=== PATIENT | female | born 1970 | race Caucasian/White ===

== ENCOUNTER → 2016-08-28 | Outpatient (CLI) | payer BC ==
--- NOTE | 2016-08-29 08:18 | MM ---
Reason for exam: screening (asymptomatic). Last mammogram was performed 1 year and 6 months ago. History: Patient is postmenopausal, has history of endometrial cancer at age 41, and had first child at age 36. Family history of breast cancer in aunt. Physical Findings: A clinical breast exam by your physician is recommended on an annual basis and results should be correlated with mammographic findings. MG Screening Mammo w CAD Bilateral CC and MLO view(s) were taken. Prior study comparison: March 03, 2015, bilateral MG screening mammo w CAD. October 29, 2013, bilateral digital screening mammo w/CAD. The breast tissue is heterogeneously dense. This may lower the sensitivity of mammography. Finding: There are typically benign round calcifications in both breasts. There is no discrete abnormality. ASSESSMENT: Benign, BI-RAD 2 RECOMMENDATION: Routine screening mammogram of both breasts in 1 year.
== END | disposition home or self-care (01) ==
LOC: RADMAMWWP 09:24
PROVIDERS: ATTEND Obstetrics & Gynecology
DX: Z12.31 Encounter for screening mammogram for malignant neoplasm of breast (principal)

== ENCOUNTER → 2017-11-28 | Outpatient (CLI) | payer BC ==
--- NOTE | 2017-11-28 12:04 | MM ---
Reason for exam: screening (asymptomatic). Last mammogram was performed 1 year and 3 months ago. History: Patient is postmenopausal, has history of endometrial cancer at age 41, and had first child at age 36. Family history of breast cancer in aunt. Physical Findings: A clinical breast exam by your physician is recommended on an annual basis and results should be correlated with mammographic findings. MG Screening Mammo w CAD Bilateral CC and MLO view(s) were taken. Prior study comparison: August 28, 2016, bilateral MG screening mammo w CAD. March 03, 2015, bilateral MG screening mammo w CAD. The breast tissue is heterogeneously dense. This may lower the sensitivity of mammography. There are typically benign round calcifications in both breasts. Focal asymmetry left anterior middle depth on MLO view, 5cm from nipple. ASSESSMENT: Incomplete: need additional imaging evaluation, BI-RAD 0 RECOMMENDATION: Special view mammogram of the left breast. If lesion persists on supplemental views, image directed ultrasound is recommended. [facility] will attempt to contact patient to return for supplemental views and ultrasound if indicated.
== END | disposition home or self-care (01) ==
LOC: RADMAMWWP 07:27
PROVIDERS: ATTEND Obstetrics & Gynecology
DX: Z12.31 Encounter for screening mammogram for malignant neoplasm of breast (principal)
CPT/HCPCS: 77067

== ENCOUNTER → 2017-12-17 | Outpatient (CLI) | payer BC ==
--- NOTE | 2017-12-17 08:36 | MM ---
Reason for exam: additional evaluation requested from abnormal screening. Last mammogram was performed 1 month ago. History: Patient is postmenopausal, has history of endometrial cancer at age 41, and had first child at age 36. Family history of breast cancer in aunt. Physical Findings: Nurse did not find any significant physical abnormalities on exam. MG 3D Work Up W/Cad LT Spot compression CC, spot compression MLO, and LM view(s) were taken of the left breast. Prior study comparison: November 28, 2017, bilateral MG screening mammo w CAD. August 28, 2016, bilateral MG screening mammo w CAD. The breast tissue is heterogeneously dense. This may lower the sensitivity of mammography. There are two masses in the left upper outer quadrant at anterior and middle depth that persist on additional views. These results were verbally communicated with the patient and result sheet given to the patient on 12/17/17. ASSESSMENT: Incomplete: need additional imaging evaluation, BI-RAD 0 RECOMMENDATION: Ultrasound of the left breast. upper outer quadrant
--- NOTE | 2017-12-17 08:38 | USB ---
Reason for exam: additional evaluation requested from abnormal screening. History: Patient is postmenopausal, has history of endometrial cancer at age 41, and had first child at age 36. Family history of breast cancer in aunt. US Breast Workup Limited LT Left limited breast ultrasound including focal area of concern, retroareolar and axilla demonstrates a 0.9 x 0.6 x 0.7cm oval, cystic lesion at 3 o'clock that corresponds to the mammographic abnormality. The second mass represents dense tissue. These results were verbally communicated with the patient and result sheet given to the patient on 12/17/17. ASSESSMENT: Benign, BI-RAD 2 RECOMMENDATION: Return to routine screening mammogram schedule for both breasts.
== END | disposition home or self-care (01) ==
LOC: RADMAMWWP 07:08
PROVIDERS: ATTEND Obstetrics & Gynecology
DX: R92.8 Other abnormal and inconclusive findings on diagnostic imaging of breast (principal)
CPT/HCPCS: 77061; 77065

== ENCOUNTER → 2019-02-14 | Outpatient (CLI) | payer BC ==
--- NOTE | 2019-02-17 10:31 | MM ---
Reason for exam: screening (asymptomatic). Last mammogram was performed 1 year and 2 months ago. History: Patient is postmenopausal, has history of endometrial cancer at age 41, and had first child at age 36. Family history of breast cancer in aunt. Physical Findings: A clinical breast exam by your physician is recommended on an annual basis and results should be correlated with mammographic findings. MG 3D Screening Mammo W/Cad Bilateral CC and MLO view(s) were taken. Prior study comparison: December 17, 2017, left breast MG 3d work up w/cad LT. November 28, 2017, bilateral MG screening mammo w CAD. The breast tissue is heterogeneously dense. This may lower the sensitivity of mammography. There are benign appearing round calcifications bilaterally. There is no discrete abnormality. ASSESSMENT: Benign, BI-RAD 2 RECOMMENDATION: Routine screening mammogram of both breasts in 1 year.
== END | disposition home or self-care (01) ==
LOC: RADMAMWWP 11:18
PROVIDERS: ATTEND Obstetrics & Gynecology
DX: Z12.31 Encounter for screening mammogram for malignant neoplasm of breast (principal)
CPT/HCPCS: 77063; 77067

== ENCOUNTER 2019-03-21 12:04 | Emergency (ER) | payer BC ==
[2019-03-21] MEDS ORDERED: SODIUM CHLORIDE 0.9% 1,000 ML IV STA (12:50)
[2019-03-21] MEDS ORDERED: KETOROLAC 30 MG/ML 1 ML VIAL IVP STA (12:50)
[2019-03-21 13:25] LABS: ALT 54 U/L (9-52); AST 47 U/L (14-36); African American GFR (CKD) >90 (>60 ml/min/1.73 sqM); Albumin 4.4 g/dL (3.5-5.0); Alkaline Phosphatase 140 U/L (38-126); Amylase 54 U/L (30-110); Anion Gap 12 mmol/L; Blood Urea Nitrogen 9 mg/dL (7-17); Calcium 9.6 mg/dL (8.4-10.2); Carbon Dioxide 24 mmol/L (22-30); Chloride 104 mmol/L (98-107); Glucose 98 mg/dL (74-99); Potassium 4.5 mmol/L (3.5-5.1); Sodium 140 mmol/L (137-145); Total Bilirubin 0.7 mg/dL (0.2-1.3); Total Protein 8.6 g/dL (6.3-8.2)
[2019-03-21 13:39] LABS: Basophils # (A) 0.1 k/uL (0-0.2); Basophils % (A) 1 %; Eosinophils # (A) 0.2 k/uL (0-0.7); Eosinophils % (A) 2 %; HCT 42.6 % (34.0-46.0); HGB 14.5 gm/dL (11.4-16.0); Lymphocytes # (A) 1.6 k/uL (1.0-4.8); Lymphocytes % (A) 17 %; MCH 28.5 pg (25.0-35.0); Mean Platelet Volume 6.8; Monocytes # (A) 0.4 k/uL (0-1.0); Monocytes % (A) 4 %; Neutrophils # (A) 7.2 k/uL (1.3-7.7); Neutrophils % (A) 75 %; Platelet Count 298 k/uL (150-450); RBC 5.07 m/uL (3.80-5.40); RDW 13.2 % (11.5-15.5); WBC 9.5 k/uL (3.8-10.6)
--- NOTE | 2019-03-21 13:48 | ED ---
Abdominal Pain HPI - General Chief Complaint: Abdominal Pain Stated Complaint: abdominal pain Time Seen by Provider: 03/21/19 12:19 Source: patient Mode of arrival: ambulatory Limitations: no limitations - History of Present Illness Initial Comments: Patient is a 49-year-old female presenting to emergency Department with complaints of lower abdominal pain 3 days. Patient states the pain has mostly been right lower quadrant but occasional pains all left lower quadrant. Patient has had increase in urination for the past week as well. Patient states the pain is sharp in nature and increases with bending over and twisting. There is no alleviating factors. Patient has past medical history of partial hysterectomy secondary to cancer as well as cholecystectomy. No other abdominal surgeries. Patient had normal bowel movement today. Patient denies any fever, chills, chest pain, shortness of breath, vomiting, diarrhea. Patient states she has been told she has diverticuli. No history of diverticulitis. Upon arrival to ER, vital signs are stable, afebrile. - Related Data Home Medications Medication Instructions Recorded Confirmed Acetaminophen Tab [Tylenol Tab] 650 mg PO Q6H PRN 06/22/15 06/25/15 Calcium Carbonate [Tums] 500 mg PO TID PRN 06/22/15 06/25/15 Previous Rx's Medication Instructions Recorded Enoxaparin [Lovenox] 100 mg SQ DAILY #7 syr 06/25/15 Hydrocodone/Acetaminophen [Winn 1 - 2 each PO Q4HR PRN #20 tab 06/25/15 5-325] Ketorolac [Toradol] 10 mg PO Q8HR #15 tab 03/21/19 Allergies Allergy/AdvReac Type Severity Reaction Status Date / Time No Known Allergies Allergy Verified 03/21/19 12:15 Review of Systems ROS Statement: Those systems with pertinent positive or pertinent negative responses have been documented in the HPI. ROS Other: All systems not noted in ROS Statement are negative. Past Medical History Past Medical History: Cancer, Deep Vein Thrombosis (DVT), GERD/Reflux Additional Past Medical History / Comment(s): hx. endometrial cancer, DVT leg 2007 after childbirth, pseudo tumor behind left eye History of Any Multi-Drug Resistant Organisms: None Reported Past Surgical History: Hysterectomy Past Anesthesia/Blood Transfusion Reactions: No Reported Reaction Smoking Status: Never smoker - Past Family History Mother Family Medical History: Cancer General Exam - General Exam Comments Initial Comments: GENERAL: Well-appearing, well-nourished and in mild distress secondary to pain. HEAD: Atraumatic, normocephalic. EYES: Pupils equal round and reactive to light, extraocular movements intact, sclera anicteric, conjunctiva are normal. ENT: TMs normal, nares patent, oropharynx clear without exudates. Moist mucous membranes. NECK: Normal range of motion, supple without lymphadenopathy or JVD. LUNGS: Breath sounds clear to auscultation bilaterally and equal. No wheezes rales or rhonchi. HEART: Regular rate and rhythm without murmurs, rubs or gallops. ABDOMEN: Tender to palpation left lower quadrant, suprapubic area, right lower quadrant, mild guarding Soft,normoactive bowel sounds. no rebound. No masses appreciated. : Deferred EXTREMITIES: Normal range of motion, no pitting or edema. No clubbing or cyanosis. NEUROLOGICAL: Cranial nerves II through XII grossly intact. Normal speech, normal gait. PSYCH: Normal mood, normal affect. SKIN: Warm, Dry, normal turgor, no rashes or lesions noted. Limitations: no limitations Course Vital Signs 03/21/19 03/21/19 03/21/19 12:12 13:47 15:14 Temperature 97.9 F 98.2 F Pulse Rate 88 80 Respiratory 16 18 18 Rate Blood Pressure 129/72 125/74 O2 Sat by Pulse 100 98 Oximetry Medical Decision Making - Medical Decision Making Patient is a 49-year-old female presenting with lower abdominal pain that has been increasing over the last 3 days. Patient admits to nausea secondary to pain. Patient denies fever, chills, vomiting, diarrhea. Patient has prior history of partial hysterectomy secondary to endometrial cancer as well as cholecystectomy. On exam patient has lower abdominal generalized tenderness. Skin exam is normal. CBC is normal, CMP reveals slightly elevated liver enzymes. Lactic acid is 0.9. UA is normal. CT the abdomen revealed an enlarged portacaval and angel hepatic lymph nodes measuring up to 2.2 cm. Metastatic disease is not excluded at this time. Left-sided diverticulosis without evidence of acute diverticulitis. Findings were discussed with the patient. Patient states she is okay to follow up with her primary care regarding these results. She reports improvement with pain medications and fluid. Patient will be sent home with some pain medication. Strict return parameters were discussed with patient she verbalized understanding. Case discussed with Dr. Schneider. - Lab Data Result diagrams: 03/21/19 12:50 03/21/19 12:50 Lab Results 03/21/19 03/21/19 03/21/19 Range/Units 12:50 12:50 12:50 WBC 9.5 (3.8-10.6) k/uL RBC 5.07 (3.80-5.40) m/uL Hgb 14.5 (11.4-16.0) gm/dL Hct 42.6 (34.0-46.0) % MCV 84.0 (80.0-100.0) fL MCH 28.5 (25.0-35.0) pg MCHC 34.0 (31.0-37.0) g/dL RDW 13.2 (11.5-15.5) % Plt Count 298 (150-450) k/uL Neutrophils % 75 % Lymphocytes % 17 % Monocytes % 4 % Eosinophils % 2 % Basophils % 1 % Neutrophils # 7.2 (1.3-7.7) k/uL Lymphocytes # 1.6 (1.0-4.8) k/uL Monocytes # 0.4 (0-1.0) k/uL Eosinophils # 0.2 (0-0.7) k/uL Basophils # 0.1 (0-0.2) k/uL Sodium 140 (137-145) mmol/L Potassium 4.5 (3.5-5.1) mmol/L Chloride 104 (98-107) mmol/L Carbon Dioxide 24 (22-30) mmol/L Anion Gap 12 mmol/L BUN 9 (7-17) mg/dL Creatinine 0.59 (0.52-1.04) mg/dL Est GFR (CKD-EPI)AfAm >90 (>60 ml/min/1.73 sqM) Est GFR (CKD-EPI)NonAf >90 (>60 ml/min/1.73 sqM) Glucose 98 (74-99) mg/dL Plasma Lactic Acid Victor Manuel 0.9 (0.7-2.0) mmol/L Calcium 9.6 (8.4-10.2) mg/dL Total Bilirubin 0.7 (0.2-1.3) mg/dL AST 47 H (14-36) U/L ALT 54 H (9-52) U/L Alkaline Phosphatase 140 H (38-126) U/L Total Protein 8.6 H (6.3-8.2) g/dL Albumin 4.4 (3.5-5.0) g/dL Amylase 54 (30-110) U/L Lipase 52 (23-300) U/L Urine Color Urine Appearance (Clear) Urine pH (5.0-8.0) Ur Specific [place] (1.001-1.035) Urine Protein (Negative) Urine Glucose (UA) (Negative) Urine Ketones (Negative) Urine Blood (Negative) Urine Nitrite (Negative) Urine Bilirubin (Negative) Urine Urobilinogen (<2.0) mg/dL Ur Leukocyte Esterase (Negative) 03/21/19 Range/Units 14:40 WBC (3.8-10.6) k/uL RBC (3.80-5.40) m/uL Hgb (11.4-16.0) gm/dL Hct (34.0-46.0) % MCV (80.0-100.0) fL MCH (25.0-35.0) pg MCHC (31.0-37.0) g/dL RDW (11.5-15.5) % Plt Count (150-450) k/uL Neutrophils % % Lymphocytes % % Monocytes % % Eosinophils % % Basophils % % Neutrophils # (1.3-7.7) k/uL Lymphocytes # (1.0-4.8) k/uL Monocytes # (0-1.0) k/uL Eosinophils # (0-0.7) k/uL Basophils # (0-0.2) k/uL Sodium (137-145) mmol/L Potassium (3.5-5.1) mmol/L Chloride (98-107) mmol/L Carbon Dioxide (22-30) mmol/L Anion Gap mmol/L BUN (7-17) mg/dL Creatinine (0.52-1.04) mg/dL Est GFR (CKD-EPI)AfAm (>60 ml/min/1.73 sqM) Est GFR (CKD-EPI)NonAf (>60 ml/min/1.73 sqM) Glucose (74-99) mg/dL Plasma Lactic Acid Victor Manuel (0.7-2.0) mmol/L Calcium (8.4-10.2) mg/dL Total Bilirubin (0.2-1.3) mg/dL AST (14-36) U/L ALT (9-52) U/L Alkaline Phosphatase (38-126) U/L Total Protein (6.3-8.2) g/dL Albumin (3.5-5.0) g/dL Amylase (30-110) U/L Lipase (23-300) U/L Urine Color Light Yellow Urine Appearance Clear (Clear) Urine pH 6.0 (5.0-8.0) Ur Specific [place] 1.038 H (1.001-1.035) Urine Protein Negative (Negative) Urine Glucose (UA) Negative (Negative) Urine Ketones Negative (Negative) Urine Blood Negative (Negative) Urine Nitrite Negative (Negative) Urine Bilirubin Negative (Negative) Urine Urobilinogen <2.0 (<2.0) mg/dL Ur Leukocyte Esterase Negative (Negative) Disposition Clinical Impression: Abdominal pain Disposition: HOME SELF-CARE Condition: Stable Instructions (If sedation given, give patient instructions): Abdominal Pain (ED) Additional Instructions: Please return to the Emergency Department if symptoms worsen or any other c oncerns. Follow-up with Dr. Lopez as discussed. Prescriptions: Ketorolac [Toradol] 10 mg PO Q8HR #15 tab Is patient prescribed a controlled substance at d/c from ED?: No Referrals: Talib Lopez MD [Primary Care Provider] - 1-2 days
--- NOTE | 2019-03-21 13:57 | CT ---
EXAMINATION TYPE: CT abdomen pelvis w con DATE OF EXAM: 03/21/2019 COMPARISON: NONE HISTORY: 49 year-old female with abdominal pain. History of endometrial cancer. TECHNIQUE: Contiguous axial scanning of the abdomen and pelvis following administration of 100 ml Iso noah 300 IV contrast. Delayed images through the kidneys and coronal/sagittal reconstructions perform ed. CT DLP: 2281.4 mGycm Automated exposure control for dose reduction was used. FINDINGS: Heart normal size without pericardial effusion. Lung bases clear without pleural effusion. Tiny hiatal hernia. Liver enlarged measuring 19.8 cm. Well-defined 1.1 cm hypodense lesion left liver lobe, likely cysts. A second subcentimeter hypodense lesion more inferiorly in the left liver lobe is too small for accu rate CT characterization and may also represent a cyst. Portal venous system is patent. No biliary ductal dilatation. Cholecystectomy clips. Enlarged portacaval lymph node measuring 2.0 cm. Anna hepatic lymph node measures 2.2 cm. Scattered nonenlarged retroperitoneal lymph nodes are demonstrated. Adrenal glands, kidneys, spleen, and pancreas show no gross abnormal body. No dilated small bowel, free fluid, or free air. Appendix not discretely identified. No secondary findings of acute appendicitis in the right lower qu adrant. Mild to moderate stool burden. Left-sided colonic diverticulosis, greatest in the proximal sigmoid. N o pericolonic inflammatory change. Bladder partially distended. Uterus surgically absent. Both ovaries are visualized. There is a 2.6 cm cystic structure within the right ovary. Pelvic phleboliths. No abnormal fluid collection in the pel vis or pelvic lymphadenopathy seen. Bones: No osseous destructive process. IMPRESSION: 1. STATUS POST HYSTERECTOMY. 2. ENLARGED PORTACAVAL AND PORTAHEPATIC LYMPH NODES MEASURING UP TO 2.2 CM. GIVEN THE PATIENT'S HISTO RY OF ENDOMETRIAL CARCINOMA , METASTATIC DISEASE IS NOT EXCLUDED AT THIS TIME. RECOMMEND COMPARISON T O THE PATIENT'S OUTSIDE PRIORS. 3. A 2.6 CM CYSTIC STRUCTURE WITHIN THE RIGHT OVARY. CORRELATE WITH PATIENT'S MENOPAUSAL STATUS. THI S WOULD BE ABNORMAL IN A POSTMENOPAUSAL FEMALE. NONEMERGENT FOLLOW-UP PELVIC ULTRASOUND TO FURTHER EV ALUATE. 4. LEFT-SIDED COLONIC DIVERTICULOSIS GREATEST IN THE PROXIMAL TO MID SIGMOID. NO EVIDENCE FOR ACUTE D IVERTICULITIS.
[2019-03-21 13:58] VITALS: RESP 18
[2019-03-21 14:50] LABS: Appearance,Urine Clear (Clear); Bilirubin,Urine Negative (Negative); Blood,Urine Negative (Negative); Color,Urine Light Yellow; Glucose,Urine (UA) Negative (Negative); Ketones,Urine Negative (Negative); Leukocyte Esterase,Urine Negative (Negative); Nitrite,Urine Negative (Negative); Protein,Urine Negative (Negative); Specific Gravity,Urine 1.038 (1.001-1.035); Urobilinogen,Urine <2.0 mg/dL (<2.0)
[2019-03-21 15:15] VITALS: BP 125/74; PULSE 80; TEMP 98.2
== END 2019-03-21 15:15 | disposition home or self-care (01) ==
LOC: EC 12:04
DX: R10.31 Right lower quadrant pain (principal); R10.32 Left lower quadrant pain; K57.30 Diverticulosis of large intestine without perforation or abscess without bleeding; Z85.42 Personal history of malignant neoplasm of other parts of uterus; Z86.718 Personal history of other venous thrombosis and embolism; Z90.49 Acquired absence of other specified parts of digestive tract; Z90.710 Acquired absence of both cervix and uterus
CPT/HCPCS: 36415; 80053; 82150; 83605; 83690; 85025; 81003; 74177; 99284; 96374; 96361 ×2; J1885; Q9967

== ENCOUNTER → 2020-03-29 | Outpatient (CLI) | payer BC ==
--- NOTE | 2020-03-30 14:08 | MM ---
Reason for exam: screening (asymptomatic). Last mammogram was performed 1 year and 1 month ago. History: Patient is postmenopausal, has history of endometrial cancer at age 41, and had first child at age 36. Family history of breast cancer in aunt. Physical Findings: A clinical breast exam by your physician is recommended on an annual basis and results should be correlated with mammographic findings. MG 3D Screening Mammo W/Cad Bilateral CC and MLO view(s) were taken. Prior study comparison: February 14, 2019, bilateral MG 3d screening mammo w/cad. December 17, 2017, left breast MG 3d work up w/cad LT. There are scattered fibroglandular densities. Benign appearing bilateral calcifications. No significant changes when compared with prior studies. ASSESSMENT: Benign, BI-RAD 2 RECOMMENDATION: Routine screening mammogram of both breasts in 1 year.
== END | disposition home or self-care (01) ==
LOC: RADMAMWWP 09:20
PROVIDERS: ATTEND Obstetrics & Gynecology
DX: Z12.31 Encounter for screening mammogram for malignant neoplasm of breast (principal); Z80.3 Family history of malignant neoplasm of breast
CPT/HCPCS: 77063; 77067

== ENCOUNTER → 2021-04-18 | Outpatient (CLI) | payer BC ==
--- NOTE | 2021-04-18 13:45 | MM ---
Reason for exam: screening (asymptomatic). Last mammogram was performed 1 year and 1 month ago. History: Patient is postmenopausal, has history of endometrial cancer at age 41, and had first child at age 36. Family history of breast cancer in aunt. Physical Findings: A clinical breast exam by your physician is recommended on an annual basis and results should be correlated with mammographic findings. MG 3D Screening Mammo W/Cad Bilateral CC and MLO view(s) were taken. Prior study comparison: March 29, 2020, bilateral MG 3d screening mammo w/cad. February 14, 2019, bilateral MG 3d screening mammo w/cad. December 17, 2017, left breast US breast workup limited LT. The breast tissue is heterogeneously dense. This may lower the sensitivity of mammography. There are benign appearing round calcifications bilaterally. There is no discrete abnormality. ASSESSMENT: Benign, BI-RAD 2 RECOMMENDATION: Routine screening mammogram of both breasts in 1 year.
--- NOTE | 2021-04-18 18:39 | BD ---
EXAMINATION TYPE: Axial Bone Density DATE OF EXAM: 04/18/2021 COMPARISON: NONE CLINICAL HISTORY: 51 YR OLD FEMALE.....ICD-10 CODE: Z78.0, N95.1 Height: 65 Weight: 254 FRAX RISK QUESTIONS: History of Fracture in Adulthood: YES Secondary Osteoporosis: YES 3. Menopause before 45: YES 5. Chronic liver disease: FATTY LIVER RISK FACTORS HISTORY OF: LT ANKLE FX AN ADULT History of Wrist Fracture: LT WRIST A CHILD Postmenopausal woman: YES, AT AGE 51, CANCER STOPPED CYCLES, ENDOMETRIAL CA AT AGE 42 Hyperparathyroidism: NO Adrenal Insufficiency: NO MEDICATIONS: Additional Medications: ALLERGY PILL, VIT D, AND VITAMINS, REFLUX MEDS, AND TUMS, Additional History: HX OF ENDOMETRIAL CA, ALLERGIES, REFLUX EXAM MEASUREMENTS: Bone mineral densitometry was performed using the [employer] System. Bone mineral density as measured about the Lumbar spine is: ----- L1-L4(G/cm2): 1.189 T Score Values are as follows: ----- L1: -0.7 ----- L2: 0.2 ----- L3: 0.4 ----- L4: 0.1 ----- L1-L4: 0.1 Bone mineral density ....FIRST DEXA STUDY, BASELINE Bone mineral density about the R hip (g/cm2): 1.207 Bone mineral density about the L hip (g/cm2): 1.203 T Score values are as follows: -----R Neck: 0.3 -----L Neck: 0.7 -----R Total: 1.6 -----L Total: 1.6 Bone mineral density .....FIRST DEXA SCAN, BASELINE STUDY FRAX%s: THERE IS A 6.5% CHANCE FOR A MAJOR OSTEOPOROTIC FX AND A 0.1% FOR HIP.......PROBABILITY F OR FX IN 10 YRS TIME IMPRESSION: Normal (Values between +1 and -1 indicate normal bone mass). Consider repeating this study in 5 year s or sooner if there is some new clinical indication. NOTE: T-SCORE=SD OF THE YOUNG ADULT MEAN.
== END | disposition home or self-care (01) ==
LOC: RADBDWWP 07:39
PROVIDERS: ATTEND Obstetrics & Gynecology
DX: Z12.31 Encounter for screening mammogram for malignant neoplasm of breast (principal); Z78.0 Asymptomatic menopausal state; Z85.42 Personal history of malignant neoplasm of other parts of uterus
CPT/HCPCS: 77063; 77067; 77080

== ENCOUNTER → 2021-11-23 | Outpatient (CLI) | payer BC ==
--- NOTE | 2021-11-23 10:28 | XR ---
EXAMINATION TYPE: XR Hip Bilateral Complete DATE OF EXAM: 11/23/2021 COMPARISON: NONE HISTORY: Pain TECHNIQUE: 2 view of the chest submitted FINDINGS: Osseous structures intact. Joint spaces preserved. Calcifications in the pelvis are likely vascular. IMPRESSION: No acute osseous abnormality. If symptoms persist consider MRI.
--- NOTE | 2021-11-23 10:29 | XR ---
EXAMINATION TYPE: XR knee limited LT DATE OF EXAM: 11/23/2021 COMPARISON: NONE HISTORY: Pain TECHNIQUE: 2 views submitted FINDINGS: Moderate to severe narrowing of the medial compartment of the knee joint. There is hypertro phic spurring. No acute fracture or dislocation. IMPRESSION: Osteoarthritis
--- NOTE | 2021-11-23 10:30 | XR ---
EXAM TYPE: LUMBAR SPINE X RAY SERIES COMPARISON: NONE HISTORY: Pain TECHNIQUE: 3 views are submitted. FINDINGS: Alignment is anatomic. The pedicles are intact. The transverse processes are intact. There is no s pondylolisthesis. Marked facet arthropathy L5-S1 with moderate changes L4-L5. IMPRESSION: 1. Moderate to severe facet arthropathy L4-5 and L5-S1. Suspect foraminal encroachment L5-S1. Correla te with MRI as clinically warranted.
== END | disposition home or self-care (01) ==
LOC: RADXRMAIN 08:51
PROVIDERS: ATTEND Internal Medicine Geriatric Medicine
DX: M17.12 Unilateral primary osteoarthritis, left knee (principal); M47.817 Spondylosis without myelopathy or radiculopathy, lumbosacral region; M25.552 Pain in left hip; M25.551 Pain in right hip
CPT/HCPCS: 72100; 73521

== ENCOUNTER → 2022-08-01 | Outpatient (CLI) | payer BC ==
--- NOTE | 2022-08-02 10:29 | MM ---
Reason for Exam: Screening (asymptomatic). Last mammogram was performed 1 year(s) and 3 month(s) ago. Patient History: Menarche at age 10. First Full-Term at age 36. Late child-bearing (after 30). Hysterectomy at age 41. Postmenopausal. Patient has history of breast feeding. Endometrial cancer, age 41. Maternal aunt had breast cancer. Risk Values: Evelyn 5 year model risk: 1.7%. NCI Lifetime model risk: 12.6%. Prior Study Comparison: 02/14/2019 Bilateral Screening Mammogram, [facility]. 03/29/2020 Bilateral Screening Mammogram, [facility]. 04/18/2021 Bilateral Screening Mammogram, [facility]. Tissue Density: The breast tissue is heterogeneously dense. This may lower the sensitivity of mammography. Findings: Analyzed By CAD. There is no suspicious group of microcalcifications or new suspicious mass in either breast. Scattered benign calcifications. Overall Assessment: Negative, BI-RAD 1 Management: Screening Mammogram of both breasts in 1 year. A clinical breast exam by your physician is recommended on an annual basis and results should be correlated with mammographic findings. [facility] will attempt to contact patient to return for supplemental views and ultrasound if indicated. Electronically signed and approved by: Car Drake DO
== END | disposition home or self-care (01) ==
LOC: RADMAMWWP 07:31
PROVIDERS: ATTEND Obstetrics & Gynecology
DX: Z12.31 Encounter for screening mammogram for malignant neoplasm of breast (principal); Z78.0 Asymptomatic menopausal state; Z80.3 Family history of malignant neoplasm of breast
CPT/HCPCS: 77063; 77067

== ENCOUNTER → 2023-08-06 | Outpatient (CLI) | payer BC ==
--- NOTE | 2023-08-07 09:09 | MM ---
Reason for Exam: Screening (asymptomatic). Last screening mammogram was performed 12 month(s) ago. Patient History: Menarche at age 10. First Full-Term at age 36. Late child-bearing (after 30). Hysterectomy at age 41. Postmenopausal. Patient has history of breast feeding. Endometrial cancer, age 41. Maternal aunt had breast cancer. Risk Values: Evelyn 5 year model risk: 1.7%. NCI Lifetime model risk: 12.4%. Prior Study Comparison: 03/29/2020 Bilateral Screening Mammogram, [facility]. 04/18/2021 Bilateral Screening Mammogram, [facility]. 08/01/2022 Bilateral MG 3D screening mammo w/cad, [facility]. Tissue Density: The breast tissue is heterogeneously dense. This may lower the sensitivity of mammography. Findings: Analyzed By CAD. Diffuse bilateral punctate calcifications are unchanged. There is no suspicious group of microcalcifications or new suspicious mass in either breast. Overall Assessment: Benign, BI-RAD 2 Management: Screening Mammogram of both breasts in 1 year. . Patient should continue monthly self-breast exams. A clinical breast exam by your physician is recommended on an annual basis. This exam should not preclude additional follow-up of suspicious palpable abnormalities. Note on Evelyn scores and lifetime risk: 1. A Evelyn score greater than 3% is considered moderate risk. If this is the case, consider specialist referral to assess eligibility for a risk reducing agent. 2. If overall lifetime risk for the development of breast cancer is 20% or higher, the patient may qualify for future screening with alternating mammogram and breast MRI. Electronically signed and approved by: Bay Lane M.D. Radiologist
== END | disposition home or self-care (01) ==
LOC: RADMAMWWP 07:32
PROVIDERS: ATTEND Obstetrics & Gynecology
DX: Z12.31 Encounter for screening mammogram for malignant neoplasm of breast (principal); Z80.3 Family history of malignant neoplasm of breast; Z78.0 Asymptomatic menopausal state
CPT/HCPCS: 77063; 77067

== ENCOUNTER 2024-12-24 08:43 | Emergency (ER) | payer BC ==
--- NOTE | 2024-12-24 09:29 | ED ---
Abdominal Pain HPI - General Chief Complaint: Abdominal Pain Stated Complaint: L leg pain Time Seen by Provider: 12/24/24 08:59 Source: patient, RN notes reviewed Limitations: no limitations - History of Present Illness Initial Comments: 54-year-old female presents emergency department chief complaint of left leg, leg swelling and pain. Patient states that she initially thought she just had a superficial clot which she has had in the past but she states she also had a DVT after childbirth. Patient states that she has no chest pain or shortness of breath but states that she had increasing leg pain and swelling which concerned her. She also complains of right-sided abdominal discomfort site flank pain. She states she has a history of kidney stones but feels different denies any significant nausea vomiting no urinary symptoms. - Related Data Home Medications Medication Instructions Recorded Confirmed Acetaminophen Tab [Tylenol Tab] 650 mg PO Q6H PRN 06/22/15 06/25/15 Calcium Carbonate [Tums] 500 mg PO TID PRN 06/22/15 06/25/15 Previous Rx's Medication Instructions Recorded Enoxaparin [Lovenox] 100 mg SQ DAILY #7 syr 06/25/15 Hydrocodone/Acetaminophen [[place] 1 - 2 each PO Q4HR PRN #20 tab 06/25/15 5-325] Ketorolac [Toradol] 10 mg PO Q8HR #15 tab 03/21/19 Allergies Allergy/AdvReac Type Severity Reaction Status Date / Time adhesive tape Allergy Rash/Hives Verified 12/24/24 09:12 Review of Systems ROS Statement: Those systems with pertinent positive or pertinent negative responses have been documented in the HPI. ROS Other: All systems not noted in ROS Statement are negative. Past Medical History Past Medical History: Cancer, Deep Vein Thrombosis (DVT), GERD/Reflux Additional Past Medical History / Comment(s): hx. endometrial cancer, DVT leg 2006 after childbirth, pseudo tumor behind left eye History of Any Multi-Drug Resistant Organisms: None Reported Past Surgical History: Cholecystectomy, Hysterectomy Past Anesthesia/Blood Transfusion Reactions: No Reported Reaction Past Alcohol Use History: Rare Past Drug Use History: None Reported - Past Family History Mother Family Medical History: Cancer General Exam Limitations: no limitations General appearance: alert, in no apparent distress Head exam: Present: atraumatic, normocephalic, normal inspection Eye exam: Present: normal appearance, PERRL, EOMI. Absent: scleral icterus, conjunctival injection, periorbital swelling Respiratory exam: Present: normal lung sounds bilaterally. Absent: respiratory distress, wheezes, rales, rhonchi, stridor Cardiovascular Exam: Present: regular rate, normal rhythm, normal heart sounds. Absent: systolic murmur, diastolic murmur, rubs, gallop, clicks GI/Abdominal exam: Present: soft, normal bowel sounds. Absent: distended, tenderness, guarding, rebound, rigid Extremities exam: Present: normal capillary refill, pedal edema, calf tenderness, other (Pulses equal bilaterally) Course Vital Signs 12/24/24 12/24/24 09:08 10:35 Temperature 98 F 98.3 F Pulse Rate 100 80 Respiratory 20 16 Rate Blood Pressure 189/115 O2 Sat by Pulse 98 99 Oximetry Medical Decision Making - Medical Decision Making Was pt. sent in by a medical professional or institution (, PA, TECHNOLOGY OFFICER, urgent care, hospital, or fdc...) When possible be specific @ -No Did you speak to anyone other than the patient for history (EMS, parent, family, police, friend...)? What history was obtained from this source @ -No Did you review nursing and triage notes (agree or disagree)? Why? @ -I reviewed and agree with nursing and triage notes Were old charts reviewed (outside hosp., previous admission, EMS record, old EKG, old radiological studies, urgent care reports/EKG's, fdc records)? Report findings @ -No old charts were reviewed Differential Diagnosis (chest pain, altered mental status, abdominal pain women, abdominal pain men, vaginal bleeding, weakness, fever, dyspnea, syncope, headache, dizziness, GI bleed, back pain, seizure, CVA, palpatations, mental health, musculoskeletal)? @ -Differential Abdominal Pain Women: Appendicitis, Cholecystitis, diverticulosis, ischemic bowel, pancreatitis, hepatitis, UTI, gastroenteritis, AAA, incarcerated hernia, bowel obstruction, constipation, inflammatory bowel, hepatitis, peptic ulcer disease, splenic infarction, perforated viscus, vulvitis, ovarian torsion, PID, kidney stone, placenta abruption, this is not meant to be an all-inclusive list DVT, SVT EKG interpreted by me (3pts min.). @ -None X-rays interpreted by me (1pt min.). @ -None done CT interpreted by me (1pt min.). @ -None done U/S interpreted by me (1pt. min.). @ -US venous Doppler left leg showing evidence of superficial thrombophlebitis] What testing was considered but not performed or refused? (CT, X-rays, U/S, labs)? Why? @ -None What meds were considered but not given or refused? Why? @ -None Did you discuss the management of the patient with other professionals (pro fessionals i.e. , PA, TECHNOLOGY OFFICER, lab, RT, psych nurse, manager social responsibility, jute bag sewer, teacher, third officer, lining caser)? Give summary @ -No Was smoking cessation discussed for >3mins.? @ -No Was critical care preformed (if so, how long)? @ -No Were there social determinants of health that impacted care today? How? (Homelessness, low income, unemployed, alcoholism, drug addiction, transportation, low edu. Level, literacy, decrease access to med. care, long-term, rehab)? @ -No Was there de-escalation of care discussed even if they declined (Discuss DNR or withdrawal of care, Hospice)? DNR status @ -No What co-morbidities impacted this encounter? (DM, HTN, Smoking, COPD, CAD, Cancer, CVA, ARF, Chemo, Hep., AIDS, mental health diagnosis, sleep apnea, morbid obesity)? @ -None Was patient admitted / discharged? Hospital course, mention meds given and route, prescriptions, significant lab abnormalities, going to OR and other pertinent info. @ -Discharge laboratory studies are unremarkable. Patient's abdominal pain very mild and nontender to palpation. Patient notes no distress. Patient is ultrasound showing superficial thrombophlebitis with placed on compression stockings anti-inflammatories warm compresses Undiagnosed new problem with uncertain prognosis? @ -No Drug Therapy requiring intensive monitoring for toxicity (Heparin, Nitro, Insulin, Cardizem)? @ -No Were any procedures done? @ -No Diagnosis/symptom? @Superficial thrombophlebitis, abdominal pain Acute, or Chronic, or Acute on Chronic? @ -Acute Uncomplicated (without systemic symptoms) or Complicated (systemic symptoms)? @ -Complicated Side effects of treatment? @ -No Exacerbation, Progression, or Severe Exacerbation? @ -No Poses a threat to life or bodily function? How? (Chest pain, [place], [place], pneumonia, PE, COPD, DKA, ARF, appy, cholecystitis, CVA, Diverticulitis, Homicidal, Suicidal, threat to staff... and all critical care pts) @ -No - Lab Data Result diagrams: 12/24/24 09:30 12/24/24 09:30 Lab Results 12/24/24 12/24/24 12/24/24 Range/Units 09:30 09:30 11:07 WBC 6.69 (4.50-10.00) 10*3/uL RBC 4.74 (4.10-5.20) 10*6/uL Hgb 14.1 (12.0-15.0) g/dL Hct 41.7 (37.2-46.3) % MCV 88.0 (80.0-97.0) fL MCH 29.7 (27.0-32.0) pg MCHC 33.8 (32.0-37.0) g/dL Plt Count 256 (140-440) 10*3/uL MPV 9.4 L (9.5-12.2) fL Immature Gran % (Auto) 0.4 % Neutrophils % 64.2 % Lymphocytes % 24.4 % Monocytes % 7.0 % Eosinophils % 3.0 % Basophils % 1.0 % Immature Gran # 0.03 (0.00-0.04) 10*3/uL Neutrophils # 4.29 (1.80-7.70) 10*3/uL Lymphocytes # 1.63 (0.90-5.00) 10*3/uL Monocytes # 0.47 (0.20-1.00) 10*3/uL Eosinophils # 0.20 (0.04-0.35) 10*3/uL Basophils # 0.07 (0.00-0.10) 10*3/uL Sodium 138 (137-145) mmol/L Potassium 4.5 (3.5-5.1) mmol/L Chloride 103 (98-107) mmol/L Carbon Dioxide 24 (22-30) mmol/L Anion Gap 11 mmol/L BUN 13 (7-17) mg/dL Creatinine 0.60 (0.52-1.04) mg/dL Est GFR (CKD-EPI)AfAm >90 (>60 ml/min/1.73 sqM) Est GFR (CKD-EPI)NonAf >90 (>60 ml/min/1.73 sqM) Glucose 101 H (74-99) mg/dL Calcium 9.6 (8.4-10.2) mg/dL Total Bilirubin 0.7 (0.2-1.3) mg/dL AST 44 H (14-36) U/L ALT 41 H (4-34) U/L Alkaline Phosphatase 167 H (38-126) U/L Total Protein 8.2 (6.3-8.2) g/dL Albumin 4.3 (3.5-5.0) g/dL Lipase 73 (23-300) U/L Urine Color Yellow Urine Appearance Cloudy H (Clear) Urine pH 6.0 (5.0-8.0) Ur Specific [place] 1.026 (1.001-1.035) Urine Protein Negative (Negative) Urine Glucose (UA) Negative (Negative) Urine Ketones Negative (Negative) Urine Blood Negative (Negative) Urine Nitrite Negative (Negative) Urine Bilirubin Negative (Negative) Urine Urobilinogen <2.0 (<2.0) mg/dL Ur Leukocyte Esterase Negative (Negative) Urine RBC <1 (0-5) /hpf Urine WBC 1 (0-5) /hpf Ur Squamous Epith Cells 3 (0-4) /hpf Urine Bacteria Rare H (None) /hpf Urine Mucus Occasional H (None) /hpf - EKG Data -: EKG Interpreted by Me EKG Comments: EKG performed at 18 sinus rhythm rate of 81 AK 136 QRS 88 QT/QTc 353/390 Disposition Clinical Impression: Superficial thrombophlebitis, Abdominal pain Disposition: HOME SELF-CARE Condition: Stable Instructions (If sedation given, give patient instructions): Superficial Thrombophlebitis (ED) Additional Instructions: Please return to the Emergency Department if symptoms worsen or any other concerns. Is patient prescribed a controlled substance at d/c from ED?: No Referrals: Talib Lopez MD [Primary Care Provider] - 1-2 days Time of Disposition: 12:13
[2024-12-24 09:45] LABS: Basophils # (A) 0.07 10*3/uL (0.00-0.10); HCT 41.7 % (37.2-46.3); HGB 14.1 g/dL (12.0-15.0); Lymphocytes # (A) 1.63 10*3/uL (0.90-5.00); Lymphocytes % (A) 24.4 %; MCH 29.7 pg (27.0-32.0); MCHC 33.8 g/dL (32.0-37.0); Mean Platelet Volume 9.4 fL (9.5-12.2); Monocytes # (A) 0.47 10*3/uL (0.20-1.00); Neutrophils # (A) 4.29 10*3/uL (1.80-7.70); Neutrophils % (A) 64.2 %; Platelet Count 256 10*3/uL (140-440); RBC 4.74 10*6/uL (4.10-5.20); RDW 12.8 % (11.5-14.5); WBC 6.69 10*3/uL (4.50-10.00)
[2024-12-24 10:06] LABS: ALT 41 U/L (4-34); AST 44 U/L (14-36); African American GFR (CKD) >90 (>60 ml/min/1.73 sqM); Albumin 4.3 g/dL (3.5-5.0); Alkaline Phosphatase 167 U/L (38-126); Anion Gap 11 mmol/L; Blood Urea Nitrogen 13 mg/dL (7-17); Calcium 9.6 mg/dL (8.4-10.2); Carbon Dioxide 24 mmol/L (22-30); Chloride 103 mmol/L (98-107); Glucose 101 mg/dL (74-99); Lipase 73 U/L (23-300); Non-African American GFR(CKD) >90 (>60 ml/min/1.73 sqM); Potassium 4.5 mmol/L (3.5-5.1); Sodium 138 mmol/L (137-145); Total Bilirubin 0.7 mg/dL (0.2-1.3); Total Protein 8.2 g/dL (6.3-8.2)
--- NOTE | 2024-12-24 10:20 | US ---
EXAMINATION TYPE: US venous doppler duplex LE LT DATE OF EXAM: 12/24/2024 10:00 AM COMPARISON: NONE CLINICAL INDICATION: Female, 54 years old with history of pain; Left leg pain/swelling x 3 days, no t hinners, hx od dvt & superficial clot in 2006 after giving , Pain TECHNIQUE: The lower extremity deep venous system is examined utilizing real time linear array sonog anna with graded compression, color doppler sonography, and spectral doppler. SIDE PERFORMED: Left FINDINGS: VESSELS IMAGED: Common Femoral Vein Deep Femoral Vein Greater Saphenous Vein * Femoral Vein Popliteal Vein Small Saphenous Vein * Proximal Calf Veins (* superficial vessels) Left Leg: no evidence of DVT, Color Doppler imaging shows patency of the vessels. Spectral waveforms are within normal limits. There appears to be a thrombosis within the Lt GSV starting in high/mid thigh past the knee with no c ompression, GSV compresses again at calf & ankle, pt does have hx of superficial clot back in 2006 Rouleaux flow seen within Lt popliteal veins IMPRESSION: 1. Left lower extremity ultrasound negative for deep venous thrombosis. [facility], , 12/24/2024 10:17 AM
[2024-12-24] MEDS: SODIUM CHLORIDE 0.9% 1,000 ML IV ONE (11:08)
[2024-12-24 11:48] LABS: Appearance,Urine Cloudy (Clear); Bacteria,Urine Rare /hpf; Bilirubin,Urine Negative (Negative); Blood,Urine Negative (Negative); Color,Urine Yellow; Glucose,Urine (UA) Negative (Negative); Ketones,Urine Negative (Negative); Leukocyte Esterase,Urine Negative (Negative); Mucus,Urine Occasional /hpf; Nitrite,Urine Negative (Negative); Protein,Urine Negative (Negative); RBC,Urine <1 /hpf (0-5); Specific Gravity,Urine 1.026 (1.001-1.035); Squamous Epithelial Cell,Urine 3 /hpf (0-4); Urobilinogen,Urine <2.0 mg/dL (<2.0); WBC,Urine 1 /hpf (0-5)
[2024-12-24 12:56] VITALS: BP 157/66; PULSE 76; RESP 18; TEMP 98
== END 2024-12-24 13:01 | disposition home or self-care (01) ==
LOC: EC 08:43
DX: I80.02 Phlebitis and thrombophlebitis of superficial vessels of left lower extremity (principal); Z91.09 Other allergy status, other than to drugs and biological substances
CPT/HCPCS: 36415; 80053; 81001; 83690; 85025; 93005; 96360; 96361; 99284

== ENCOUNTER 2025-01-06 17:14 | Inpatient (IN) | payer BC ==
[2025-01-06 18:06] LABS: Basophils # (A) 0.06 10*3/uL (0.00-0.10); Basophils % (A) 0.8 %; Eosinophils % (A) 2.5 %; HGB 13.9 g/dL (12.0-15.0); Lymphocytes # (A) 2.17 10*3/uL (0.90-5.00); Lymphocytes % (A) 27.6 %; MCH 28.8 pg (27.0-32.0); MCHC 33.1 g/dL (32.0-37.0); Mean Platelet Volume 9.8 fL (9.5-12.2); Monocytes # (A) 0.54 10*3/uL (0.20-1.00); Monocytes % (A) 6.9 %; Neutrophils # (A) 4.86 10*3/uL (1.80-7.70); Neutrophils % (A) 61.9 %; Platelet Count 263 10*3/uL (140-440); RBC 4.83 10*6/uL (4.10-5.20); RDW 12.5 % (11.5-14.5); WBC 7.85 10*3/uL (4.50-10.00)
[2025-01-06 18:20] LABS: ALT 39 U/L (4-34); African American GFR (CKD) >90 (>60 ml/min/1.73 sqM); Anion Gap 14 mmol/L; Blood Urea Nitrogen 9 mg/dL (7-17); Calcium 9.3 mg/dL (8.4-10.2); Carbon Dioxide 21 mmol/L (22-30); Chloride 104 mmol/L (98-107); Glucose 81 mg/dL (74-99); Non-African American GFR(CKD) >90 (>60 ml/min/1.73 sqM); Sodium 139 mmol/L (137-145); Total Bilirubin 0.7 mg/dL (0.2-1.3)
[2025-01-06 18:21] LABS: AST 53 U/L (14-36); Albumin 4.5 g/dL (3.5-5.0); Potassium 4.5 mmol/L (3.5-5.1); Total Protein 8.6 g/dL (6.3-8.2)
[2025-01-06 18:22] LABS: Alkaline Phosphatase 155 U/L (38-126)
[2025-01-06 18:42] LABS: Partial Thromboplastin Time 23.1 sec (22.0-30.0); Prothrombin Time 10.7 sec (10.0-12.5)
--- NOTE | 2025-01-06 18:51 | ED ---
General Adult HPI - General Source: patient, family, RN notes reviewed, old records reviewed Mode of arrival: ambulatory Limitations: no limitations <Sukhwinder Guillermo - Last Filed: 01/06/25 21:11> <Christian Rodriguez - Last Filed: 01/12/25 15:41> - General Chief complaint: Chest Pain Stated complaint: Chest pain - History of Present Illness Initial comments: 54-year-old female with a history of DVT and superficial thrombophlebitis presents with complaints of chest pain. States this morning around 3:30 AM she was having some right-sided chest pain that got worse on deep inspiration. Denies the pain getting worse on exertion. Rated the pain initially as a 6 out of 10, states that she noticed it potentially radiate to the right side of her neck once but otherwise has not noticed any other radiation. Reports now there is no radiation of the pain. Of note patient was here couple weeks ago with left lower extremity pain, at that time diagnosed with superficial thrombophlebitis. Patient admits to a short spell of shortness of breath this morning but otherwise no shortness of breath, no palpitations. States after the initial onset at 3:30 AM she was able to go back to sleep but then was still having similar pain at 6 AM. Reports she thought that it could be musculoskeletal so tried to just take some ibuprofen and see if the pain got better, but as the day progressed her pain persisted especially with deep inspiration so decided come to the ER for further evaluation. (Sukhwinder Guillermo) - Related Data Home Medications Medication Instructions Recorded Confirmed Cetirizine HCl [Zyrtec] 10 mg PO DAILY 01/06/25 01/06/25 Cholecalciferol [Vitamin D3 (25 25 mcg PO DAILY 01/06/25 01/06/25 Mcg = 1000 Iu)] Ibuprofen [Motrin Ib] 400 mg PO TID PRN 01/06/25 01/06/25 Previous Rx's Medication Instructions Recorded Apixaban [Eliquis Starter Pack 5 - 10 mg PO DIRECTED 30 Days 01/07/25 (for VTE)] #1 each Acetaminophen Tab [Tylenol] 650 mg PO Q6HR PRN tab 01/08/25 Allergies Allergy/AdvReac Type Severity Reaction Status Date / Time adhesive tape Allergy Rash/Hives Verified 01/06/25 20:52 Review of Systems ROS Other: All systems not noted in ROS Statement are negative. <Sukhwinder Guillermo - Last Filed: 01/06/25 21:11> ROS Other: All systems not noted in ROS Statement are negative. <Christian Rodriguez - Last Filed: 01/12/25 15:41> ROS Statement: Those systems with pertinent positive or pertinent negative responses have been documented in the HPI. Past Medical History Past Medical History: Cancer, Deep Vein Thrombosis (DVT), GERD/Reflux Additional Past Medical History / Comment(s): hx. endometrial cancer, DVT leg 2007 after childbirth, pseudo tumor behind left eye History of Any Multi-Drug Resistant Organisms: None Reported Past Surgical History: Cholecystectomy, Hysterectomy Past Anesthesia/Blood Transfusion Reactions: No Reported Reaction Past Psychological History: No Psychological Hx Reported Past Alcohol Use History: Rare Past Drug Use History: None Reported - Past Family History Mother Family Medical History: Cancer <Sukhwinder Guillermo - Last Filed: 01/06/25 21:11> General Exam Limitations: no limitations <Sukhwinder Guillermo - Last Filed: 01/06/25 21:11> - General Exam Comments Initial Comments: GENERAL: In no apparent distress at the time of examination. Pleasant and cooperative. HEENT: Head is atraumatic, normocephalic. Pupils are equal, round, and reactive to light. Sclerae anicteric. Conjunctivae are clear. Mucus membranes of the mouth are moist. Neck is supple. RESPIRATORY: Clear to auscultation. No wheezes, rales, or rhonchi. No use of accessory muscles. Patient maintaining oxygen saturation greater than 92%. No chest wall tenderness is noted on palpation or with deep breathing. CARDIOVASCULAR: Regular rate and rhythm. S1 and S2 noted. No systolic or diastolic murmur auscultated. No JVD noted. No S3 or S4 noted. GASTROINTESTINAL: No distention noted. Abdomen soft and round. Normal active bowel sounds auscultated x 4 quadrants. No pain or tenderness noted upon palpation. INTEGUMENTARY: No cyanosis. No jaundice. No rashes noted. No cellulitis noted. EXTREMITIES: 2+ peripheral pulses. No evidence of peripheral edema. No calf te nderness noted. PSYCHIATRIC: Awake, alert, and oriented X 3. Appropriate affect. Intact judgement and insight. (Sukhwinder Guillermo) Course Vital Signs 01/06/25 01/06/25 01/06/25 17:29 20:52 21:29 Temperature 97.9 F Pulse Rate 80 75 70 Respiratory 22 18 18 Rate Blood Pressure 159/82 175/83 165/81 O2 Sat by Pulse 99 97 98 Oximetry 01/07/25 01/07/25 01/07/25 00:00 02:00 04:14 Temperature Pulse Rate 79 67 76 Respiratory 18 17 18 Rate Blood Pressure 159/86 154/80 O2 Sat by Pulse 96 97 Oximetry 01/07/25 01/07/25 01/07/25 06:00 08:12 11:23 Temperature Pulse Rate 73 82 71 Respiratory 18 18 18 Rate Blood Pressure 152/78 142/79 O2 Sat by Pulse 97 97 Oximetry 01/07/25 16:59 Temperature 98.2 F Pulse Rate 77 Respiratory 16 Rate Blood Pressure 153/74 O2 Sat by Pulse 95 Oximetry Medical Decision Making - Lab Data Result diagrams: 01/06/25 17:57 01/06/25 17:57 <Sukhwinder Guillermo - Last Filed: 01/06/25 21:11> - Lab Data Result diagrams: 01/08/25 08:26 01/08/25 08:26 <Christian Rodriguez - Last Filed: 01/12/25 15:41> - Medical Decision Making Was pt. sent in by a medical professional or institution (MICHELINE Boudreaux, INSIDE OUTSIDE SALES REPRESENTATIVE, urgent care, hospital, or half-way...) When possible be specific @ -No Did you speak to anyone other than the patient for history (EMS, parent, family, police, friend...)? What history was obtained from this source @ -No Did you review nursing and triage notes (agree or disagree)? Why? @ -I reviewed and agree with nursing and triage notes Were old charts reviewed (outside hosp., previous admission, EMS record, old EKG, old radiological studies, urgent care reports/EKG's, half-way records)? Report findings @ -No old charts were reviewed Differential Diagnosis? @ -Differential Chest Pain: PE, stable Angina, Unstable Angina, STEMI, NSTEMI Aortic Dissection, Pneumothorax, Musculoskeletal, Esophageal Spasm GERD, Cholecystitis, Pancreatitis, Zoster, this is not meant to be an all-inclusive list. EKG interpreted by me (3pts min.). @ -As above X-rays interpreted by me (1pt min.). @ -None done CT interpreted by me (1pt min.). @ -CT angio chest shows bilateral PE with some evidence of right heart strain U/S interpreted by me (1pt. min.). @ -None done What testing was considered but not performed or refused? (CT, X-rays, U/S, labs)? Why? @ -None What meds were considered but not given or refused? Why? @ -None Did you discuss the management of the patient with other professionals (professionals i.e. DrBeau, PA, INSIDE OUTSIDE SALES REPRESENTATIVE, lab, RT, psych nurse, social media analyst, heading repairer, teacher, radiological defense officer, bottle caser)? Give summary @ -No Was smoking cessation discussed for >3mins.? @ -No Was critical care preformed (if so, how long)? @ -No Were there social determinants of health that impacted care today? How? (Homelessness, low income, unemployed, alcoholism, drug addiction, transportation, low edu. Level, literacy, decrease access to med. care, fci, rehab)? @ -No Was there de-escalation of care discussed even if they declined (Discuss DNR or withdrawal of care, Hospice)? DNR status @ -No What co-morbidities impacted this encounter? (DM, HTN, Smoking, COPD, CAD, Cancer, CVA, ARF, Chemo, Hep., AIDS, mental health diagnosis, sleep apnea, morbid obesity)? @ -None Was patient admitted / discharged? Hospital course, mention meds given and route, prescriptions, significant lab abnormalities, going to OR and other pertinent info. @ -Admitted, 54-year-old female presenting with chest pain right-sided that gets worse with inspiration. Of note patient was here couple weeks ago with left lower extremity pain, at that time diagnosed with superficial thrombophlebitis. Patient underwent lab work showing an elevated D-dimer, then CTA chest was ordered which showed bilateral PE with some evidence of right heart strain. I was contacted by the radiologist with this result. Patient was then started on a heparin drip and admitted to the hospital. I spoke with the supervisor audit clerks about potential admission to the ICU but he decided the patient would be fine to be admitted to the floor with telemetry. I spoke with the on-call [facility] provider who excepted the admission. Undiagnosed new problem with uncertain prognosis? @ -No Drug Therapy requiring intensive monitoring for toxicity (Heparin, Nitro, Insulin, Cardizem)? @ -Heparin Were any procedures done? @ -No Diagnosis/symptom? @ -Bilateral PE Acute, or Chronic, or Acute on Chronic? @ -Acute Uncomplicated (without systemic symptoms) or Complicated (systemic symptoms)? @ -Default Side effects of treatment? @ -No Exacerbation, Progression, or Severe Exacerbation? @ -No Poses a threat to life or bodily function? How? (Chest pain, [place], [place], pneumonia, PE, COPD, DKA, ARF, appy, cholecystitis, CVA, Diverticulitis, Homicidal, Suicidal, threat to staff... and all critical care pts) @ -Yes, bilateral PE can lead to severe hypoxia and right heart strain leading to endorgan damage and potentially . (Sukhwinder Guillermo) I personally saw the patient and performed the critical portion of the service. I discussed the patient care with the resident. I directed management, care planning and final disposition of the patient. This includes, but not limited to, review of all lab work, radiological studies, EKG's, consultations, vital s igns, and nursing notes. EKG interpreted by me (3pts min.) @As above X-Rays interpreted by me (1 pt min.) @Chest x-ray shows no acute processes CT interpreted by me ( 1pt min.) @None U/S interpreted by me (1 pt min.) @None Critical care time of 77 minutes minutes excluding separately billable procedures was spent in conjunction with critical care activities provided by the Resident and Attending simultaneously. I was present during no procedures for all critical portions of the procedure and as immediately available to furnish service during the entire procedure. (Christian May) - Lab Data Lab Results 01/06/25 01/06/25 01/06/25 Range/Units 17:57 17:57 17:57 WBC 7.85 (4.50-10.00) 10*3/uL RBC 4.83 (4.10-5.20) 10*6/uL Hgb 13.9 (12.0-15.0) g/dL Hct 42.0 (37.2-46.3) % MCV 87.0 (80.0-97.0) fL MCH 28.8 (27.0-32.0) pg MCHC 33.1 (32.0-37.0) g/dL Plt Count 263 (140-440) 10*3/uL MPV 9.8 (9.5-12.2) fL Immature Gran % (Auto) 0.3 % Neutrophils % 61.9 % Lymphocytes % 27.6 % Monocytes % 6.9 % Eosinophils % 2.5 % Basophils % 0.8 % Immature Gran # 0.02 (0.00-0.04) 10*3/uL Neutrophils # 4.86 (1.80-7.70) 10*3/uL Lymphocytes # 2.17 (0.90-5.00) 10*3/uL Monocytes # 0.54 (0.20-1.00) 10*3/uL Eosinophils # 0.20 (0.04-0.35) 10*3/uL Basophils # 0.06 (0.00-0.10) 10*3/uL PT 10.7 (10.0-12.5) sec INR 1.0 (<1.2) APTT 23.1 (22.0-30.0) sec D-Dimer 1.82 H (<0.60) mg/L FEU Sodium 139 (137-145) mmol/L Potassium 4.5 (3.5-5.1) mmol/L Chloride 104 (98-107) mmol/L Carbon Dioxide 21 L (22-30) mmol/L Anion Gap 14 mmol/L BUN 9 (7-17) mg/dL Creatinine 0.45 L (0.52-1.04) mg/dL Est GFR (CKD-EPI)AfAm >90 (>60 ml/min/1.73 sqM) Est GFR (CKD-EPI)NonAf >90 (>60 ml/min/1.73 sqM) Glucose 81 (74-99) mg/dL Calcium 9.3 (8.4-10.2) mg/dL Magnesium 2.0 (1.6-2.3) mg/dL Total Bilirubin 0.7 (0.2-1.3) mg/dL AST 53 H (14-36) U/L ALT 39 H (4-34) U/L Alkaline Phosphatase 155 H (38-126) U/L Troponin I (0.000-0.034) ng/mL Total Protein 8.6 H (6.3-8.2) g/dL Albumin 4.5 (3.5-5.0) g/dL 01/06/25 Range/Units 17:57 WBC (4.50-10.00) 10*3/uL RBC (4.10-5.20) 10*6/uL Hgb (12.0-15.0) g/dL Hct (37.2-46.3) % MCV (80.0-97.0) fL MCH (27.0-32.0) pg MCHC (32.0-37.0) g/dL Plt Count (140-440) 10*3/uL MPV (9.5-12.2) fL Immature Gran % (Auto) % Neutrophils % % Lymphocytes % % Monocytes % % Eosinophils % % Basophils % % Immature Gran # (0.00-0.04) 10*3/uL Neutrophils # (1.80-7.70) 10*3/uL Lymphocytes # (0.90-5.00) 10*3/uL Monocytes # (0.20-1.00) 10*3/uL Eosinophils # (0.04-0.35) 10*3/uL Basophils # (0.00-0.10) 10*3/uL PT (10.0-12.5) sec INR (<1.2) APTT (22.0-30.0) sec D-Dimer (<0.60) mg/L FEU Sodium (137-145) mmol/L Potassium (3.5-5.1) mmol/L Chloride (98-107) mmol/L Carbon Dioxide (22-30) mmol/L Anion Gap mmol/L BUN (7-17) mg/dL Creatinine (0.52-1.04) mg/dL Est GFR (CKD-EPI)AfAm (>60 ml/min/1.73 sqM) Est GFR (CKD-EPI)NonAf (>60 ml/min/1.73 sqM) Glucose (74-99) mg/dL Calcium (8.4-10.2) mg/dL Magnesium (1.6-2.3) mg/dL Total Bilirubin (0.2-1.3) mg/dL AST (14-36) U/L ALT (4-34) U/L Alkaline Phosphatase (38-126) U/L Troponin I 0.026 (0.000-0.034) ng/mL Total Protein (6.3-8.2) g/dL Albumin (3.5-5.0) g/dL Disposition <Sukhwinder Guillermo - Last Filed: 01/06/25 21:11> <Christian Rodriguez - Last Filed: 01/12/25 15:41> Clinical Impression: Bilateral pulmonary embolism Disposition: ADMITTED IP TO THIS HOSP
--- NOTE | 2025-01-06 19:00 | XR ---
EXAMINATION TYPE: XR chest 2V DATE OF EXAM: 01/06/2025 6:53 PM COMPARISON: None. CLINICAL INDICATION: Female, 54 years old with history of Chest Pain; [facility] TECHNIQUE: XR chest 2V Frontal and lateral views of the chest. FINDINGS: Lungs/Pleura: There is no evidence of pleural effusion, focal consolidation, or pneumothorax. Pulmonary vascularity: Unremarkable. Heart/mediastinum: Cardiomediastinal silhouette is unremarkable. Musculoskeletal: No acute osseous pathology. Other findings: None IMPRESSION: No acute cardiopulmonary disease/process. [facility], , 01/06/2025 6:58 PM
[2025-01-06] MEDS ORDERED: HEPARIN SODIUM 1,000 UN/ML (10ML VL) IV PRN (19:13)
--- NOTE | 2025-01-06 19:19 | CT ---
EXAMINATION TYPE: CT chest angio for PE DATE OF EXAM: 01/06/2025 7:04 PM COMPARISON: Chest radiograph from same day. Multiple CTs of the chest with most recent on . CLINICAL INDICATION: Female, 54 years old with history of Dyspnea; chest pain, hx of PE TECHNIQUE/CONTRAST: CTA scan of the thorax is performed with IV Contrast, patient injected with 78cc mL of Isovue 370, MO P images are created and reviewed these are created on a separate workstation.. CT DLP: 478.5 mGycm, Automated exposure control for dose reduction was used. FINDINGS: Pulmonary Artery: Numerous low-density filling defects throughout the left lower, right lower, right upper and right middle lobe segmental and subsegmental pulmonary artery branches. No evidence of acut e pulmonary embolism within the main pulmonary arteries. There is a dilated RV/LV ratio and mild bowi ng of the interventricular septum. The pulmonary artery is of normal size. Lungs/Pleura: No evidence of focal consolidation, pleural effusion or pneumothorax. Airway: Large airways are patent. Heart: Heart is within normal limits for size. Vasculature: No evidence of aortic aneurysm. Mediastinum: No gross evidence of adenopathy. Musculoskeletal: No acute osseous abnormalities Soft Tissues/lymph nodes: Unremarkable. Lower neck: No significant findings. Upper Abdomen: No significant acute findings. Previous cholecystectomy. Small indeterminant hypodense attenuating lesion in the left hepatic lobe, possibly reflecting a cyst partially visualized colonic diverticulosis in the upper abdomen. IMPRESSION: Bilateral acute pulmonary emboli involving the segmental and subsegmental pulmonary artery branches w ith findings suggestive of right heart strain as described above. Recommend correlation with troponin values and possible echocardiography if clinically warranted. *Findings were discussed with Dr. Guillermo at 7:12 PM on 01/06/2025. [facility], , 01/06/2025 7:17 PM
[2025-01-06] MEDS ORDERED: NALOXONE 0.4 MG/ML 1 ML VIAL IV PRN (20:14)
[2025-01-06] MEDS: HEPARIN SOD,PORK IN 0.45% NACL 25,000 UNIT in 0.45% NACL 1 250ML.BAG IV SCH (20:48)
[2025-01-06] MEDS: HEPARIN SODIUM 1,000 UN/ML (10ML VL) IV ONE (20:48)
[2025-01-07 02:08] LABS: Basophils # (A) 0.07 10*3/uL (0.00-0.10); Basophils % (A) 0.7 %; Eosinophils # (A) 0.26 10*3/uL (0.04-0.35); Eosinophils % (A) 2.6 %; HCT 38.6 % (37.2-46.3); HGB 12.8 g/dL (12.0-15.0); Lymphocytes # (A) 3.38 10*3/uL (0.90-5.00); Lymphocytes % (A) 33.7 %; MCH 29.2 pg (27.0-32.0); MCHC 33.2 g/dL (32.0-37.0); MCV 87.9 fL (80.0-97.0); Monocytes # (A) 0.57 10*3/uL (0.20-1.00); Monocytes % (A) 5.7 %; Neutrophils # (A) 5.72 10*3/uL (1.80-7.70); Platelet Count 239 10*3/uL (140-440); RBC 4.39 10*6/uL (4.10-5.20); RDW 12.6 % (11.5-14.5); WBC 10.03 10*3/uL (4.50-10.00)
--- NOTE | 2025-01-07 08:37 | P.CNPUL ---
History of Present Illness Consult date: 01/07/25 Requesting physician: Sukhwinder Guillermo Reason for consult: pulmonary embolism Chief complaint: Chest pain History of present illness: Patient is a 54-year-old female with past medical history significant for endometrial cancer status post partial hysterectomy, DVT of the left leg following childbirth 2006, no longer maintained on anticoagulation. Of note, patient did have some left leg pain approximately 2 weeks ago. Did have venous Doppler of her left lower extremity on 12/24 which did not show any DVT. Thrombus was noted within the GSV. Presented to the emergency department yesterday evening with complaints of chest pain, worse with inspiration. Radiation to the right. Chest pain developed rather abruptly in the middle the night around 3 AM that morning. She was sleeping at the time, and the pain woke her up. She tried Tums and ibuprofen, however, pain did not stop. Came to the emergency department for evaluation. Chest CT angiogram showing bilateral acute pulmonary emboli involving segmental and subsegmental pulmonary artery branches. Mildly elevated RV/LV ratio possibly suggestive of right-sided heart strain. Patient was started on high intensity heparin protocol in the ED. Baseline labs including a CBC with a WBC count of 10, hemoglobin 12.8 g/dL, platelets 239. BMP unremarkable, electrolytes WDL, creatinine 0.45, glucose 81. Troponin 0.026. Blood pressure has remains normotensive, not requiring any fluid boluses or vasopressors. She is currently resting comfortably on room air. Denies any shortness of breath, cough, hemoptysis, lightheadedness or syncopal events. Heparin continues per protocol. No unilateral leg edema. Endorses, previous DVT following childbirth, previously on Coumadin for 1 year, and no longer on any anticoagulation. Recent airplane travel in October, to [facility] and the [facility] [place]. No recent hospitalizations or surgeries. No recent trauma. States her brother had a blood clot in his brain, otherwise, no family history of DVT/PE. Vital signs remain stable. Review of Systems Constitutional: Denies chills, Denies fever, Denies poor appetite, Denies weight gain, Denies weight loss Ears, nose, mouth and throat: Denies epistaxis, Denies headache, Denies nasal congestion, Denies nasal discharge, Denies post-nasal drip, Denies sinus pain, Denies sinus pressure, Denies sore throat Cardiovascular: Reports chest pain, Denies leg edema, Denies lightheadedness, Denies orthopnea, Denies palpitations, Denies paroxysmal nocturnal dyspnea, Denies syncope Respiratory: Reports pain on inspiration, Denies congestion, Denies cough, Denies dyspnea, Denies hemoptysis Gastrointestinal: Reports heartburn, Denies abdominal pain, Denies diarrhea, Denies nausea, Denies vomiting Genitourinary: Denies hematuria Musculoskeletal: Denies limitation of motion Integumentary: Denies rash, Denies unusual bruising Neurological: Denies headaches, Denies seizures, Denies syncope Psychiatric: Denies anxiety, Denies depression Past Medical History Past Medical History: Cancer, Deep Vein Thrombosis (DVT), GERD/Reflux Additional Past Medical History / Comment(s): hx. endometrial cancer, DVT leg 2007 after childbirth, pseudo tumor behind left eye History of Any Multi-Drug Resistant Organisms: None Reported Past Surgical History: Cholecystectomy, Hysterectomy Past Anesthesia/Blood Transfusion Reactions: No Reported Reaction Past Psychological History: No Psychological Hx Reported Past Alcohol Use History: Rare Past Drug Use History: None Reported - Past Family History Mother Family Medical History: Cancer Medications and Allergies Home Medications Medication Instructions Recorded Confirmed Type Cetirizine HCl [Zyrtec] 10 mg PO DAILY 01/06/25 01/06/25 History Cholecalciferol [Vitamin D3 (25 25 mcg PO DAILY 01/06/25 01/06/25 History Mcg = 1000 Iu)] Ibuprofen [Motrin Ib] 400 mg PO TID PRN 01/06/25 01/06/25 History Apixaban [Eliquis Starter Pack 5 - 10 mg PO DIRECTED 30 Days 01/07/25 Rx (for VTE)] #1 each Allergies Allergy/AdvReac Type Severity Reaction Status Date / Time adhesive tape Allergy Rash/Hives Verified 01/06/25 20:52 Physical Exam Vitals: Vital Signs Temp Pulse Resp BP Pulse Ox 01/07/25 00:00 79 18 159/86 96 01/06/25 21:29 70 18 165/81 98 01/06/25 20:52 75 18 175/83 97 01/06/25 17:29 97.9 F 80 22 159/82 99 Intake and Output 01/06/25 01/06/25 01/07/25 14:59 22:59 06:59 Other: Weight 111.13 kg GENERAL EXAM: Alert, obese 54-year-old female, comfortable in no apparent distress. HEAD: Normocephalic and atraumatic EYES: Normal reaction of pupils, equal size. NOSE: Clear with pink turbinates. THROAT: No erythema or exudates. NECK: No masses, no JVD. CHEST: No chest wall deformity. LUNGS: Equal air entry with no crackles, wheeze, rhonchi or dullness. On room air. No conversational dyspnea or accessory muscle use.. CVS: S1 and S2 normal with no audible murmur, regular rhythm. No extra heart sounds ABDOMEN: No hepatosplenomegaly, active bowel sounds, no guarding or rigidity. SPINE: No scoliosis or deformity SKIN: No rashes CENTRAL NERVOUS SYSTEM: No focal deficits, tone is normal in all 4 extremities. EXTREMITIES: There is no peripheral edema, clubbing, or cyanosis. Peripheral pulses are intact. Results - Laboratory Findings CBC and BMP: 01/07/25 05:23 01/07/25 05:23 PT/INR, D-dimer PT 10.7 sec (10.0-12.5) 01/06/25 17:57 INR 1.0 (<1.2) 01/06/25 17:57 D-Dimer 1.82 mg/L FEU (<0.60) H 01/06/25 17:57 Abnormal lab findings: Abnormal Labs 01/06/25 01/06/25 01/07/25 17:57 17:57 01:31 WBC 10.03 H D-Dimer 1.82 H Carbon Dioxide 21 L Creatinine 0.45 L AST 53 H ALT 39 H Alkaline Phosphatase 155 H Total Protein 8.6 H - Diagnostic Findings CT scan - chest: image reviewed Assessment and Plan Assessment: Acute bilateral segmental and subsegmental pulmonary emboli, submassive, with questionable CT evidence of right-sided heart strain with flattening of the inte rventricular septum and elevated RV LV ratio. Nonetheless, patient is hemodynamically stable, not required any fluid boluses or vasopressors. Currently resting comfortably on room air. Superficial venous thrombus, venous Doppler of the left lower extremity from 12/24/2024 noted a thrombus within GSV. No DVT reported. Remote history of DVT, left leg, following childbirth History of recent airplane travel History of endometrial cancer status post partial hysterectomy Obesity, BMI 40.8 kg/m Chronic varicose veins involving lower extremities bilaterally, superficial Plan: Currently on room air Blood pressures remain normotensive Not requiring any fluid boluses or vasopressors Continues on IV heparin per protocol Monitor APTT per protocol Obtain transthoracic echocardiogram to evaluate for right-sided heart strain Obtain NT proBNP Obtain venous Doppler of bilateral lower extremities Patient will be transitioned to DOAC prior to hospital discharge Case to be reviewed with Dr. Lester, further recommendations to follow I have personally seen and examined the patient, performed the documentation and the assessment and plan as written. Number of minutes spent on the visit:20 This is a joint evaluation that was done along with the nurse practitioner. The patient was seen and evaluated in the emergency department. The patient has bilateral segmental subsegmental pulmonary embolism and a superficial venous thrombosis in the left lower extremity initially noted on 12/24/2024 and a follow-up Doppler of the lower extremity done showed extensive left greater saphenous vein thrombosis extending to the upper thigh and down into the calf. The thrombus is located more than 2 cm from the common femoral vein junction. The patient also has chronic varicose veins involving the lower extremities bilaterally. She has previous history of DVT following a childbirth many years back. No family history of DVT or pulmonary embolism. The patient is hemodynamically stable on IV heparin. The patient will be switched to Eliquis within the next 24 hours. Troponins were negative. proBNP level is not elevated. Echocardiogram was ordered and the results are still pending for now. The patient also has a ultrasound the pelvis transvaginal and transabdominal and it showed that the uterus is surgically absent, ovaries are obscured by bowel gas and no significant abnormalities were noted in the cul-de-sac was also within normal limits. She is currently on room air oxygen. Will continue to follow. She will likely need long-term anticoagulation. She has seen Dr. Aguilar in the past regarding hypercoagulability and possibly a follow-up visit may be of value in the future to evaluate for hypercoagulable state. Time with Patient: Greater than 30
--- NOTE | 2025-01-07 09:49 | US ---
EXAMINATION TYPE: US venous doppler duplex LE BI DATE OF EXAM: 01/07/2025 7:39 AM COMPARISON: 12/24/2024 CLINICAL INDICATION: Female, 54 years old with history of Evaluate for DVT; Chest, Pain, Hx DVT TECHNIQUE: The lower extremity deep venous system is examined utilizing real time linear array sonog anna with graded compression, color doppler sonography, and spectral doppler. SIDE PERFORMED: Bilateral FINDINGS: VESSELS IMAGED: Common Femoral Vein Deep Femoral Vein Greater Saphenous Vein * Femoral Vein Popliteal Vein Small Saphenous Vein * Proximal Calf Veins Posterior tibial veins (* superficial vessels) Right Leg: Negative for DVT, Color Doppler imaging shows patency of the vessels. Spectral waveforms are within normal limits. Left Leg: Negative for DVT, Color Doppler imaging shows patency of the vessels. Spectral waveforms a re within normal limits. However, there is thrombus seen within GSV from proximal portion to distal calf. IMPRESSION: 1. Exam again positive for extensive left GSV thrombosis extending from the upper thigh down into the lower calf. Thrombus is located more than 2 cm from the CFV junction. 2. Otherwise, no evidence for DVT within the bilateral lower extremity. [facility], , 01/07/2025 9:46 AM
[2025-01-07 10:33] LABS: Basophils # (A) 0.06 10*3/uL (0.00-0.10); Basophils % (A) 0.7 %; Eosinophils # (A) 0.21 10*3/uL (0.04-0.35); Eosinophils % (A) 2.5 %; HGB 12.4 g/dL (12.0-15.0); Lymphocytes # (A) 2.97 10*3/uL (0.90-5.00); Lymphocytes % (A) 35.2 %; MCH 29.2 pg (27.0-32.0); MCHC 32.6 g/dL (32.0-37.0); MCV 89.4 fL (80.0-97.0); Mean Platelet Volume 10.2 fL (9.5-12.2); Monocytes # (A) 0.56 10*3/uL (0.20-1.00); Monocytes % (A) 6.6 %; Neutrophils # (A) 4.62 10*3/uL (1.80-7.70); Neutrophils % (A) 54.8 %; Platelet Count 257 10*3/uL (140-440); RBC 4.25 10*6/uL (4.10-5.20); RDW 12.8 % (11.5-14.5); WBC 8.44 10*3/uL (4.50-10.00)
[2025-01-07 12:53] LABS: African American GFR (CKD) >90 (>60 ml/min/1.73 sqM); Anion Gap 10 mmol/L; Blood Urea Nitrogen 7 mg/dL (7-17); Calcium 8.9 mg/dL (8.4-10.2); Carbon Dioxide 18 mmol/L (22-30); Chloride 108 mmol/L (98-107); Glucose 132 mg/dL (74-99); Non-African American GFR(CKD) >90 (>60 ml/min/1.73 sqM); Potassium 3.6 mmol/L (3.5-5.1); Sodium 136 mmol/L (137-145)
[2025-01-07] MEDS: CHOLECALCIFEROL 25 MCG (1000 IU) TABLET PO SCH (13:21)
[2025-01-07] MEDS: PANTOPRAZOLE 40 MG/10 ML VIAL IVP SCH (13:22)
[2025-01-07 17:00] VITALS: RESP 16
--- NOTE | 2025-01-07 18:11 | US ---
EXAMINATION TYPE: US pelvis complete transvag DATE OF EXAM: 01/07/2025 COMPARISON: CT 2019 CLINICAL INDICATION: Female, 54 years old with history of lower right pelvic pain, hx of endometrial ca; hx endometrial CA. patient states right sided pain that comes and goes for 3 weeks. partial hyste rectomy TECHNIQUE: Transvaginal (TV) and Transabdominal (TA) . Transabdominal grayscale sonographic images of the pelvis were acquired. Transvaginal sonographic im ages were medically necessary to better assess the following anatomy: Adnexas Doppler imaging: Not performed. FINDINGS: EXAM MEASUREMENTS: Uterus: Surgically absent Endometrial Stripe: Surgically absent Right Ovary: Not visualized due to bowel gas. Left Ovary: Not visualized due to bowel gas. 1. Uterus: Surgically absent 2. Endometrium: Surgically absent 3. Right Ovary: Obscured by overlying bowel gas 4. Left Ovary: Obscured by overlying bowel gas 5. Bilateral Adnexa: no abnormalities visualized with ultrasound at this time 6. Posterior cul-de-sac: wnl IMPRESSION: 1. No acute pelvic ultrasound abnormality. 2. Patient's endometrial cancer not identified by ultrasound O-RADS 2021 [email or web address] [facility], , 01/07/2025 6:08 PM
[2025-01-07] MEDS: ACETAMINOPHEN TAB 325 MG TAB PO PRN (20:13)
--- NOTE | 2025-01-08 05:53 | P.HPIM ---
History of Present Illness H&P Date: 01/07/25 This is a pleasant 54-year-old female who presented to the emergency department with intermittent chest pain that woke her up out of her sleep and persisted and was noted to be worsening with deep inspiration. Patient was reporting some mild shortness of breath although not requiring oxygen. Patient reports she follows with Dr. Lopez in the outpatient setting with a past medical history of endometrial cancer, DVT, GERD, morbid obesity. Patient denies any illicit drug use or smoking occasionally socially drinks although very rarely. Patient does have a history of DVT in the past after 18 years ago and was noted to be superficial and extensive under the knee and was maintained on warfarin for 1 year. Patient denies any recent long distance traveling although did travel to [facility] in October of this year. Chest x-ray revealed no acute cardiopulmonary process. Labs reviewed with normal white count of 7.85, hemoglobin stable at 13.9, platelets 263, INR 1.0, D-dimer 139 with a potassium of 4.5, BUN is 9 and creatinine is 0.45 and troponin 0.026 with a BNP of 131. Patient did undergo CTA which revealed bilateral acute pulmonary emboli involving the segmental and subsegmental pulmonary artery branches with findings suggestive of right heart strain. Echo is ordered and pending and patient was started on heparin and admitted with pulmonary for evaluation. Patient is currently on room air although does report some chest discomfort and increased shortness of breath with deep inspiration. Recommend incentive spirometer use. REVIEW OF SYSTEMS: CONSTITUTIONAL: No fever, no malaise, no fatigue. HEENT: No recent visual problems or hearing problems. Denied any sore throat. CARDIOVASCULAR: Reports occasional chest pain, orthopnea, PND, no palpitations, no syncope. PULMONARY: Reports of intermittent shortness of breath, no cough, no hemoptysis. GASTROINTESTINAL: No diarrhea, no nausea, no vomiting, no abdominal pain. NEUROLOGICAL: No headaches, no weakness, no numbness. HEMATOLOGICAL: Denies any bleeding or petechiae. GENITOURINARY: Denies any burning micturition, frequency, or urgency. MUSCULOSKELETAL/RHEUMATOLOGICAL: Reports lower extremity charley horses and cramping with some swelling ENDOCRINE: Denies any polyuria or polydipsia. The rest of the 14-point review of systems is negative. PHYSICAL EXAMINATION: GENERAL: The patient is alert and oriented x3, not in any acute distress. Well developed, well nourished. Morbidly obese HEENT: Pupils are round and equally reacting to light. EOMI. No scleral icterus. No conjunctival pallor. Normocephalic, atraumatic. No pharyngeal erythema. No thyromegaly. CARDIOVASCULAR: S1 and S2 muffled PULMONARY: Diminished breath sounds bilaterally otherwise chest is clear to auscultation, no wheezing or crackles. ABDOMEN: Soft, morbidly obese nontender, nondistended, normoactive bowel sounds. No palpable organomegaly. MUSCULOSKELETAL: No joint swelling or deformity. EXTREMITIES: No cyanosis, clubbing, or pedal edema. NEUROLOGICAL: Gross neurological examination did not reveal any focal deficits. SKIN: No rashes. Assessment: Elevated D-dimer with bilateral acute pulmonary emboli involving the segmental with concerns of possible right heart strain. Echo is ordered and pending and patient was started on heparin History of previous DVTs and superficial DVTs Recent ER visit within noted superficial DVT and was sent home on compression stockings and NSAIDs Chest pain, ruled out ACS, likely secondary to pulmonary emboli Morbid obesity with a BMI of 40.8 Lower right quadrant and left quadrant abdominal tenderness, ultrasound pending for evaluation GI prophylaxis DVT prophylaxis Full code Plan: Patient was admitted with some chest pain and increased pain and some shortness of breath with deep inspiration is status post CT which was positive for multiple bilaterally pulmonary emboli. Patient is being followed by pulmonary and currently awaiting 2D echo to assess for right heart strain. 2D echo was notified of the urgent order to assess for right heart strain and was told, will look into it. Continue heparin for now and will send a prescription to pharmacy for Eliquis to verify coverage. Patient will likely require lifetime anticoagulation Encouraged increase activity as tolerated Elevate lower extremities while at rest Recommend incentive spirometer use at least 10 times every hour while awake Will follow-up on repeat labs. Recommend to monitor electrolytes and kidney functions and replace per protocol Pending echo and will discuss further once these have resulted regarding discharge planning The impression and plan of care has been dictated by Racheal Milner, Nurse Practitioner as directed. Dr. Freddy MD I have performed a history and examination and MDM of this patient, discussed the same with the dictator, and agree with the dictator's assessment and plan as written ,documented as a scribe. Based on total visit time, I have performed more than 50% of the visit. Past Medical History Past Medical History: Cancer, Deep Vein Thrombosis (DVT), GERD/Reflux Additional Past Medical History / Comment(s): hx. endometrial cancer, DVT leg 2007 after childbirth, pseudo tumor behind left eye History of Any Multi-Drug Resistant Organisms: None Reported Past Surgical History: Cholecystectomy, Hysterectomy Past Anesthesia/Blood Transfusion Reactions: No Reported Reaction Past Psychological History: No Psychological Hx Reported Past Alcohol Use History: Rare Past Drug Use History: None Reported - Past Family History Mother Family Medical History: Cancer Medications and Allergies Home Medications Medication Instructions Recorded Confirmed Type Cetirizine HCl [Zyrtec] 10 mg PO DAILY 01/06/25 01/06/25 History Cholecalciferol [Vitamin D3 (25 25 mcg PO DAILY 01/06/25 01/06/25 History Mcg = 1000 Iu)] Ibuprofen [Motrin Ib] 400 mg PO TID PRN 01/06/25 01/06/25 History Apixaban [Eliquis Starter Pack 5 - 10 mg PO DIRECTED 30 Days 01/07/25 Rx (for VTE)] #1 each Allergies Allergy/AdvReac Type Severity Reaction Status Date / Time adhesive tape Allergy Rash/Hives Verified 01/06/25 20:52 Physical Exam Vitals: Vital Signs Temp Pulse Resp BP Pulse Ox 01/07/25 08:12 82 18 152/78 97 01/07/25 06:00 73 18 01/07/25 04:14 76 18 154/80 97 01/07/25 02:00 67 17 01/07/25 00:00 79 18 159/86 96 01/06/25 21:29 70 18 165/81 98 01/06/25 20:52 75 18 175/83 97 01/06/25 17:29 97.9 F 80 22 159/82 99 Intake and Output 01/06/25 01/07/25 01/07/25 22:59 06:59 14:59 Intake Total 174.359 47.12 Balance 174.359 47.12 Intake: Intake, IV Titration 174.359 47.12 Amount Heparin Sod,Pork in 0.45% 174.359 47.12 NaCl 25,000 unit In 0.45 % NaCl 1 250ml.bag @ 18 UNITS/KG/HR 20.003 mls/hr IV .[id number] [facility] Rx#: [id number] Other: Weight 111.13 kg Results CBC & Chem 7: 01/07/25 05:23 01/07/25 05:23 Labs: Abnormal Lab Results - Last 24 Hours (Table) 01/06/25 01/06/25 01/07/25 Range/Units 17:57 17:57 01:31 WBC (4.50-10.00) 10*3/uL APTT 83.7 H (22.0-30.0) sec D-Dimer 1.82 H (<0.60) mg/L FEU Carbon Dioxide 21 L (22-30) mmol/L Creatinine 0.45 L (0.52-1.04) mg/dL AST 53 H (14-36) U/L ALT 39 H (4-34) U/L Alkaline Phosphatase 155 H (38-126) U/L Total Protein 8.6 H (6.3-8.2) g/dL 01/07/25 01/07/25 Range/Units 01:31 05:23 WBC 10.03 H (4.50-10.00) 10*3/uL APTT 81.2 H (22.0-30.0) sec D-Dimer (<0.60) mg/L FEU Carbon Dioxide (22-30) mmol/L Creatinine (0.52-1.04) mg/dL AST (14-36) U/L ALT (4-34) U/L Alkaline Phosphatase (38-126) U/L Total Protein (6.3-8.2) g/dL
[2025-01-08 06:22] LABS: Basophils # (A) 0.06 10*3/uL (0.00-0.10); Basophils % (A) 0.7 %; Eosinophils % (A) 3.5 %; HGB 12.5 g/dL (12.0-15.0); MCH 28.9 pg (27.0-32.0); MCHC 32.9 g/dL (32.0-37.0); MCV 87.8 fL (80.0-97.0); Mean Platelet Volume 9.4 fL (9.5-12.2); Monocytes # (A) 0.56 10*3/uL (0.20-1.00); Monocytes % (A) 6.5 %; Neutrophils # (A) 5.22 10*3/uL (1.80-7.70); Neutrophils % (A) 60.9 %; Platelet Count 232 10*3/uL (140-440); RBC 4.33 10*6/uL (4.10-5.20); RDW 12.8 % (11.5-14.5); WBC 8.57 10*3/uL (4.50-10.00)
[2025-01-08 06:44] LABS: African American GFR (CKD) >90 (>60 ml/min/1.73 sqM); Anion Gap 7 mmol/L; Blood Urea Nitrogen 11 mg/dL (7-17); Calcium 8.9 mg/dL (8.4-10.2); Carbon Dioxide 24 mmol/L (22-30); Chloride 107 mmol/L (98-107); Glucose 101 mg/dL (74-99); Non-African American GFR(CKD) >90 (>60 ml/min/1.73 sqM); Potassium 3.9 mmol/L (3.5-5.1); Sodium 138 mmol/L (137-145)
[2025-01-08 08:41] LABS: Basophils # (A) 0.06 10*3/uL (0.00-0.10); Basophils % (A) 0.6 %; Eosinophils # (A) 0.23 10*3/uL (0.04-0.35); Eosinophils % (A) 2.3 %; HCT 37.9 % (37.2-46.3); HGB 12.4 g/dL (12.0-15.0); Lymphocytes # (A) 2.21 10*3/uL (0.90-5.00); Lymphocytes % (A) 22.5 %; MCH 28.3 pg (27.0-32.0); MCHC 32.7 g/dL (32.0-37.0); MCV 86.5 fL (80.0-97.0); Mean Platelet Volume 8.9 fL (9.5-12.2); Monocytes % (A) 6.1 %; Neutrophils # (A) 6.71 10*3/uL (1.80-7.70); Neutrophils % (A) 68.2 %; Platelet Count 226 10*3/uL (140-440); RBC 4.38 10*6/uL (4.10-5.20); RDW 12.8 % (11.5-14.5); WBC 9.84 10*3/uL (4.50-10.00)
[2025-01-08] MEDS: LORATADINE 10 MG TAB PO SCH (09:07)
[2025-01-08 10:09] LABS: African American GFR (CKD) >90 (>60 ml/min/1.73 sqM); Anion Gap 8 mmol/L; Blood Urea Nitrogen 11 mg/dL (7-17); Calcium 9.3 mg/dL (8.4-10.2); Carbon Dioxide 25 mmol/L (22-30); Chloride 103 mmol/L (98-107); Glucose 107 mg/dL (74-99); Non-African American GFR(CKD) >90 (>60 ml/min/1.73 sqM); Potassium 3.7 mmol/L (3.5-5.1); Sodium 136 mmol/L (137-145)
--- NOTE | 2025-01-08 11:18 | CA ---
Transthoracic Echo Report Name: Elenita Mcbride Age: 54 Gender: F : 1970 Exam Date: 01/08/2025 07:38 Exam Location: [facility] Ht (in): 65 Wt (lb): 245 Ordering Physician: Jorge Wu Attending/Referring Phys: Claim Specialist Ruth Davis RDCS Procedure CPT: Indications: Bilateral PE questionable CT evidence right heart Cardiac Hx: Technical Quality: Good Contrast 1: Total Dose (mL): Contrast 2: Total Dose (mL): MEASUREMENTS (Male / Female) Normal Values 2D ECHO LV Diastolic Diameter PLAX 4.7 cm 4.2 - 5.9 / 3.9 - 5.3 cm LV Systolic Diameter PLAX 3.3 cm IVS Diastolic Thickness 1.3 cm 0.6 - 1.0 / 0.6 - 0.9 cm LVPW Diastolic Thickness 1.3 cm 0.6 - 1.0 / 0.6 - 0.9 cm LV Relative Wall Thickness 0.6 RV Internal Dim ED PLAX 2.5 cm LA Systolic Diameter LX 4.0 cm 3.0 - 4.0 / 2.7 - 3.8 cm LV Diastolic Volume MOD BP 76.3 cm??? 67 - 155 / 56 - 104 cm??? LV Systolic Volume MOD BP 25.1 cm??? 22 - 58 / 19 - 49 cm??? LV Ejection Fraction MOD BP 67.0 % >= 55 % LV Cardiac Index MOD BP 1767.9 cm???/min???m??? LV Diastolic Volume MOD 4C 74.8 cm??? LV Systolic Volume MOD 4C 26.1 cm??? LV Ejection Fraction MOD 4C 65.1 % LV Cardiac Index MOD 4C 1684.2 cm???/min???m??? LV Diastolic Length 4C 8.5 cm LV Systolic Length 4C 6.6 cm LV Diastolic Volume MOD 2C 78.4 cm??? LV Systolic Volume MOD 2C 24.9 cm??? LV Ejection Fraction MOD 2C 68.2 % LV Cardiac Index MOD 2C 1848.2 cm???/min???m??? LV Diastolic Length 2C 8.5 cm LV Systolic Length 2C 6.6 cm LA Volume 52.5 cm??? 18 - 58 / 22 - 52 cm??? LA Volume Index 22.7 cm???/m??? 16 - 28 cm???/m??? M-MODE Aortic Root Diameter MM 3.2 cm LA Systolic Diameter MM 3.9 cm LA Ao Ratio MM 1.2 AV Cusp Separation MM 2.0 cm DOPPLER AV Peak Velocity 145.5 cm/s AV Peak Gradient 8.5 mmHg AV Mean Velocity 99.3 cm/s AV Mean Gradient 4.5 mmHg AV Velocity Time Integral 31.7 cm MV Area PHT 3.0 cm??? Mitral E Point Velocity 76.8 cm/s Mitral A Point Velocity 82.2 cm/s Mitral E to A Ratio 0.9 MV Deceleration Time 255.2 ms TR Peak Velocity 245.4 cm/s TR Peak Gradient 24.1 mmHg Right Ventricular Systolic Press 28.6 mmHg FINDINGS Left Ventricle Left ventricular ejection fraction is estimated at 55-60 %. Mildly increased septal wall thickness. Moderately increased posterior wall thickness. Normal left ventricular systolic function with no obvious regional wall motion abnormalities. Left ventricular cavity size normal. Right Ventricle Normal right ventricular size and function. Right ventricular systolic pressure within normal limits. Right Atrium Normal right atrial size. Left Atrium Mildly increased left atrial diameter. Mitral Valve Structurally normal mitral valve. Trace mitral regurgitation. No mitral stenosis. Aortic Valve Trileaflet aortic valve. No aortic valve stenosis or regurgitation. Tricuspid Valve Structurally normal tricuspid valve. Mild tricuspid regurgitation. No tricuspid stenosis. Pulmonic Valve Structurally normal pulmonic valve. Trace pulmonic regurgitation. No pulmonic stenosis. Pericardium No pericardial or pleural effusion. Aorta Normal size aortic root and proximal ascending aorta. CONCLUSIONS LVEF 55 to 60% Mild concentric LVH No obvious regional wall motion abnormality Normal RV size and systolic function Mild tricuspid regurgitation No pericardial effusion Previewed by: Dr Jose Elias Hart (Electronically Signed) Final Date: 08 January 2025 11:17
[2025-01-08 11:23] VITALS: TEMP 98.5
[2025-01-08] MEDS: APIXABAN 5 MG TAB PO SCH (11:49)
[2025-01-08 16:45] VITALS: BP 126/84; PULSE 89
--- NOTE | 2025-01-08 17:32 | P.PN ---
Subjective Progress Note Date: 01/08/25 Patient is a 54-year-old female with past medical history significant for endometrial cancer status post partial hysterectomy, DVT of the left leg following childbirth 2006, no longer maintained on anticoagulation. Of note, patient did have some left leg pain approximately 2 weeks ago. Did have venous Doppler of her left lower extremity on 12/24 which did not show any DVT. Thrombus was noted within the GSV. Presented to the emergency department yesterday evening with complaints of chest pain, worse with inspiration. Radiation to the right. Chest pain developed rather abruptly in the middle the night around 3 AM that morning. She was sleeping at the time, and the pain woke her up. She tried Tums and ibuprofen, however, pain did not stop. Came to the emergency department for evaluation. Chest CT angiogram showing bilateral acute pulmonary emboli involving segmental and subsegmental pulmonary artery branches. Mildly elevated RV/LV ratio possibly suggestive of right-sided heart strain. Patient was started on high intensity heparin protocol in the ED. Baseline labs including a CBC with a WBC count of 10, hemoglobin 12.8 g/dL, platelets 239. BMP unremarkable, electrolytes WDL, creatinine 0.45, glucose 81. Troponin 0.026. Blood pressure has remains normotensive, not requiring any fluid boluses or vasopressors. She is currently resting comfortably on room air. Denies any shortness of breath, cough, hemoptysis, lightheadedness or syncopal events. Heparin continues per protocol. No unilateral leg edema. Endorses, previous DVT following childbirth, previously on Coumadin for 1 year, and no longer on any anticoagulation. Recent airplane travel in October, to [facility] and back. No recent hospitalizations or surgeries. No recent trauma. States her brother had a blood clot in his brain, otherwise, no family history of DVT/PE. Vital signs remain stable. 01/08/2025, the patient is doing extremely well. No respiratory distress. No pleurisy or hemoptysis. No new complaints. She remains on IV heparin. Hemoglobin is 12.4. Electrolytes are stable. BUN is 11 with a creatinine of 0.5. Echocardiogram was completed and the patient has a preserved LV function with an ejection fraction of 55 to 60%. The right ventricular systolic pressure is at 28. No pericardial effusion. No other abnormalities. Objective - Vital Signs Vital signs: Vital Signs Temp 97.6 F 01/08/25 04:00 Pulse 81 01/08/25 08:00 Resp 16 01/08/25 08:00 BP 128/73 01/08/25 04:00 Pulse Ox 97 01/08/25 04:00 FiO2 Intake & Output 01/07/25 01/08/25 01/08/25 18:59 06:59 18:59 Intake Total 47.12 250 0 Balance 47.12 250 0 Weight 111.13 kg 111.2 kg Intake: Intake, IV Titration 47.12 250 Amount Heparin Sod,Pork in 0.45% 47.12 250 NaCl 25,000 unit In 0.45 % NaCl 1 250ml.bag @ 18 UNITS/KG/HR 20.003 mls/hr IV .[id number] DEANNE Rx#: [id number] Oral 0 Other: Voiding Method Toilet Toilet Toilet # Voids 1 # Bowel Movements 1 - Exam GENERAL: In no apparent distress at the time of examination. Pleasant and cooperative. HEENT: Head is atraumatic, normocephalic. Pupils are equal, round, and reactive to light. Sclerae anicteric. Conjunctivae are clear. Mucus membranes of the mouth are moist. Neck is supple. RESPIRATORY: Clear to auscultation. No wheezes, rales, or rhonchi. No use of accessory muscles. Patient maintaining oxygen saturation greater than 92%. No chest wall tenderness is noted on palpation or with deep breathing. CARDIOVASCULAR: Regular rate and rhythm. S1 and S2 noted. No systolic or diastolic murmur auscultated. No JVD noted. No S3 or S4 noted. GASTROINTESTINAL: No distention noted. Abdomen soft and round. Normal active bowel sounds auscultated x 4 quadrants. No pain or tenderness noted upon palpation. INTEGUMENTARY: No cyanosis. No jaundice. No rashes noted. No cellulitis noted. EXTREMITIES: 2+ peripheral pulses. No evidence of peripheral edema. No calf tenderness noted. PSYCHIATRIC: Awake, alert, and oriented X 3. Appropriate affect. Intact judgement and insight. - Labs CBC & Chem 7: 01/08/25 08:26 01/08/25 08:26 Labs: Abnormal Lab Results - Last 24 Hours (Table) 01/07/25 01/07/25 01/08/25 Range/Units 05:23 11:02 06:05 MPV (9.5-12.2) fL APTT 65.0 H 65.3 H (22.0-30.0) sec Sodium 136 L (137-145) mmol/L Chloride 108 H (98-107) mmol/L Carbon Dioxide 18 L (22-30) mmol/L Creatinine 0.51 L (0.52-1.04) mg/dL Glucose 132 H (74-99) mg/dL 01/08/25 01/08/25 01/08/25 Range/Units 06:05 06:05 08:26 MPV 9.4 L 8.9 L (9.5-12.2) fL APTT (22.0-30.0) sec Sodium (137-145) mmol/L Chloride (98-107) mmol/L Carbon Dioxide (22-30) mmol/L Creatinine (0.52-1.04) mg/dL Glucose 101 H (74-99) mg/dL 01/08/25 Range/Units 08:26 MPV (9.5-12.2) fL APTT (22.0-30.0) sec Sodium 136 L (137-145) mmol/L Chloride (98-107) mmol/L Carbon Dioxide (22-30) mmol/L Creatinine (0.52-1.04) mg/dL Glucose 107 H (74-99) mg/dL Assessment and Plan Assessment: Acute bilateral segmental and subsegmental pulmonary emboli, submassive, with questionable CT evidence of right-sided heart strain with flattening of the interventricular septum and elevated RV LV ratio. Nonetheless, patient is hemodynamically stable, not required any fluid boluses or vasopressors. Currently resting comfortably on room air. Superficial venous thrombus, venous Doppler of the left lower extremity from 12/24/2024 noted a thrombus within GSV. No DVT reported. 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 Discontinue the IV heparin Start the patient on anticoagulation with Eliquis per protocol Possible discharge today. She remains on room air oxygen. Hemodynamically stable. Outpatient follow-up.
--- NOTE | 2025-01-14 23:40 | P.DS ---
Providers Date of admission: 01/06/25 20:16 Expected date of discharge: 01/08/25 Attending physician: Chuck Huerta Consults: 01/06/25 21:47 Consult Physician Routine Consulting Provider: Saida Lester Consult Reason/Comments: Bilateral PE Do you want consulting provider notified?: Already Contacted Primary care physician: Talib Lopez Hospital Course: Final diagnosis Elevated D-dimer with bilateral acute pulmonary emboli involving the segmental regions and echo does not reveal heart strain History of previous DVTs and superficial DVTs Recent ER visit within noted superficial DVT and was sent home on compression stockings and NSAIDs Chest pain, ruled out ACS, likely secondary to pulmonary emboli Morbid obesity with a BMI of 40.8 Lower right quadrant and left quadrant abdominal tenderness, ultrasound and will follow-up outpatient with primary care provider GI prophylaxis DVT prophylaxis Full code Discharge disposition Patient is being discharged in a stable condition with guarded prognosis to home. Patient will follow-up with Dr. Lopez in the outpatient setting upon discharge. Patient is to continue with Eliquis and close outpatient follow-up with pulmonary as well as hematology as scheduled. Total time taken is greater than 35 minutes. Hospital course This is a pleasant 54-year-old female who presented to the emergency department with intermittent chest pain that woke her up out of her sleep and persisted and was noted to be worsening with deep inspiration. Patient was reporting some mild shortness of breath although not requiring oxygen. Patient reports she follows with Dr. Lopez in the outpatient setting with a past medical history of endometrial cancer, DVT, GERD, morbid obesity. Patient denies any illicit drug use or smoking occasionally socially drinks although very rarely. Patient does have a history of DVT in the past after 18 years ago and was noted to be superficial and extensive under the knee and was maintained on warfarin for 1 year. Patient denies any recent long distance traveling although did travel to [facility] in October of this year. Chest x-ray revealed no acute cardiopulmonary process. Labs reviewed with normal white count of 7.85, hemoglobin stable at 13.9, platelets 263, INR 1.0, D-dimer 139 with a potassium of 4.5, BUN is 9 and creatinine is 0.45 and troponin 0.026 with a BNP of 131. Patient did undergo CTA which revealed bilateral acute pulmonary emboli involving the segmental and subsegmental pulmonary artery branches with findings suggestive of right heart strain. Echo is ordered and pending and patient was started on heparin and admitted with pulmonary for evaluation. Patient is currently on room air although does report some chest discomfort and increased shortness of breath with deep inspiration. Recommend incentive spirometer use. 01/08/2025 Patient is seen in follow-up today status post 2D echo with no evidence of right heart strain noted. Patient was maintained on heparin and has transition to Eliquis we will continue on 10 mg twice daily for 1 week and then transition to 5 mg twice daily thereafter. Patient has been encouraged to follow-up with hematology as well as pulmonary in the outpatient setting. Patient has been cleared by consultations and will be going home today. Patient denies any chest pain, shortness of breath, or palpitations. Patient is afebrile with no reports of nausea or vomiting. Patient has been tolerating diet. Patient encouraged to take frequent breaks while traveling and getting up and walking frequently. Please refer to other consultation notes for further HPI. PHYSICAL EXAMINATION: GENERAL: The patient is alert and oriented x3, not in any acute distress. Well developed, well nourished. Morbidly obese HEENT: Pupils are round and equally reacting to light. EOMI. No scleral icterus. No conjunctival pallor. Normocephalic, atraumatic. No pharyngeal erythema. No thyromegaly. CARDIOVASCULAR: S1 and S2 muffled PULMONARY: Diminished breath sounds bilaterally otherwise chest is clear to auscultation, no wheezing or crackles. ABDOMEN: Soft, morbidly obese nontender, nondistended, normoactive bowel sounds. No palpable organomegaly. MUSCULOSKELETAL: No joint swelling or deformity. EXTREMITIES: No cyanosis, clubbing, or pedal edema. NEUROLOGICAL: Gross neurological examination did not reveal any focal deficits. SKIN: No rashes. Please refer to medication reconciliation sheet for a list of medications. The impression and plan of care has been dictated by Racheal Milner, Nurse Practitioner as directed. Dr. Freddy MD I have performed a history and examination and MDM of this patient, discussed the same with the dictator, and agree with the dictator's assessment and plan as written ,documented as a scribe. Based on total visit time, I have performed more than 50% of the visit. Patient Condition at Discharge: Stable Plan - Discharge Summary Discharge Rx Participant: No New Discharge Prescriptions: New Acetaminophen Tab [Tylenol] 650 mg PO Q6HR PRN tab PRN Reason: Mild Pain Or Fever > 100.5 Apixaban [Eliquis Starter Pack (for VTE)] 5 - 10 mg PO DIRECTED 30 Days #1 each Continue Cholecalciferol [Vitamin D3 (25 Mcg = 1000 Iu)] 25 mcg PO DAILY Ibuprofen [Motrin Ib] 400 mg PO TID PRN PRN Reason: Pain Or Fever > 100.5 Cetirizine HCl [Zyrtec] 10 mg PO DAILY Discharge Medication List Cetirizine HCl [Zyrtec] 10 mg PO DAILY 01/06/25 [History] Cholecalciferol [Vitamin D3 (25 Mcg = 1000 Iu)] 25 mcg PO DAILY 01/06/25 [History] Ibuprofen [Motrin Ib] 400 mg PO TID PRN 01/06/25 [History] Apixaban [Eliquis Starter Pack (for VTE)] 5 - 10 mg PO DIRECTED 30 Days #1 each 01/07/25 [Rx] Acetaminophen Tab [Tylenol] 650 mg PO Q6HR PRN tab 01/08/25 [Rx] Follow up Appointment(s)/Referral(s): Luigi Diaz MD [STAFF PHYSICIAN] - 2 Weeks (hematology) Talib Lopez MD [Primary Care Provider] - 1-2 days (January 12 3:15) Saida Lester MD [STAFF PHYSICIAN] - 1 Week (March 19, 9:00) Patient Instructions/Handouts: Pulmonary Embolism (ED) Activity/Diet/Wound Care/Special Instructions: Activity limited until follow-up Follow-up with primary care provider on discharge Follow-up with hematology outpatient Follow-up with pulmonary outpatient Continue taking 10 mg twice daily for the next 1 week of Eliquis and then transition down to twice daily of 5 mg thereafter. Do not discontinue taking this medication unless the doctor has discussed this with you Continue to elevate lower extremities while at rest and may use pantyhose as discussed If traveling long distances, as discussed previously, recommend frequent breaks and getting up walking around for a bit Discharge Disposition: HOME SELF-CARE
== END 2025-01-08 16:31 | disposition home or self-care (01) | DRG 176 ==
LOC: EC 17:14 → 3SCARD 20:16
PROVIDERS: ADMIT Hospitalist; ATTEND Hospitalist
DX: I26.94 Multiple subsegmental thrombotic pulmonary emboli without acute cor pulmonale (principal); I82.812 Embolism and thrombosis of superficial veins of left lower extremity; E66.01 Morbid (severe) obesity due to excess calories; Z68.41 Body mass index [BMI] 40.0-44.9, adult; I26.99 Other pulmonary embolism without acute cor pulmonale; K21.9 Gastro-esophageal reflux disease without esophagitis; I83.93 Asymptomatic varicose veins of bilateral lower extremities; Z85.42 Personal history of malignant neoplasm of other parts of uterus; Z86.718 Personal history of other venous thrombosis and embolism; Z86.72 Personal history of thrombophlebitis; Z90.711 Acquired absence of uterus with remaining cervical stump; Z79.01 Long term (current) use of anticoagulants; Z91.048 Other nonmedicinal substance allergy status
CPT/HCPCS: 36415; 71046; 71275; 76830; 76856; 80048; 80053; 82272; 83735; 83880; 84484; 85025; 85379; 85610; 85730; 93005; 93306; 93970; 96365; 96366; 99285